=== PATIENT | female | born 1960 | race Two or more races ===

== ENCOUNTER 2017-01-19 04:01 | Emergency (ER) | payer OTHER, MEDICAID ==
[~2017-01-19] VITALS: Ht 177.8 cm; Wt 108.9 kg
[~2017-01-19 04:01] MED LIST: FOLI200T; HYDR-1421
[2017-01-19 05:05] LABS: Basophils # (auto) 0.1 uL; Basophils % (auto) 0.8 % (0.0-2.0); CONDITION Y; Eosinophils # (auto) 0.3 uL; Eosinophils % (auto) 3.5 % (0.0-7.0); Hematocrit 39.5 % (36.0-46.0); Hemoglobin 13.4 g/dL (12.2-16.2); Lymphocytes # (auto) 2.8 uL; Mean Corpuscular Hemoglobin 29.7 pg (28.0-32.0); Mean Corpuscular Volume 87.3 fL (80.0-100.0); Mean Platelet Volume 9.2 fL (7.4-10.4); Monocytes # (auto) 0.5 uL; Monocytes % (auto) 6.4 % (0.0-12.0); Neutrophils # (auto) 4.7 uL; Neutrophils % (auto) 56.3 % (37.0-80.0); Platelet Count (auto) 308 10^3/uL (140-450); Red Cell Distribution Width 13.9 % (11.6-16.0); White Blood Cell 8.4 10^3/uL (4.4-10.8)
[2017-01-19 05:17] LABS: INR 0.95 (0.9-1.15); Partial Thromboplastin Time 25.9 sec (22.64-33.71); Prothrombin Time 10.3 sec (9.37-12.3)
[2017-01-19 05:28] LABS: Albumin 3.5 g/dL (3.4-5.0); Alkaline Phosphatase 113 U/L (45-117); Anion Gap 6 (5-15); Aspartate Aminotransferase 15 U/L (15-37); BUN/Creatinine Ratio 28.6; Bilirubin, Total 0.7 mg/dL (0.2-1.0); Blood Urea Nitrogen 24 mg/dL (7-18); Calcium 9.5 mg/dL (8.5-10.1); Carbon Dioxide 25 mmol/L (21-32); Chloride 107 mmol/L (98-107); GFR African American 91 mL/min; GFR Non-African American 75 mL/min; Glucose 108 mg/dL (74-106); Magnesium 2.1 mg/dL (1.6-2.6); Potassium 3.8 mmol/L (3.5-5.1); Sodium 138 mmol/L (136-145); Total Protein 7.6 g/dL (6.4-8.2)
[2017-01-19 06:28] LABS: B-Type Natriuretic Peptide < 5.0 pg/mL (0-100); Temperature: 22.4 C (20.0-25.0)
[2017-01-19 06:31] VITALS: BP 133/74
== END 2017-01-19 07:40 | disposition left against medical advice (07) ==
LOC: ER 04:01 → EDBD 04:01 → ER 07:37
DX: R07.89 Other chest pain (principal); K21.9 Gastro-esophageal reflux disease without esophagitis; Z90.710 Acquired absence of both cervix and uterus
CPT/HCPCS: 36415; 71010; 80053; 83735; 83880; 84484; 85025; 85379; 85610; 85730; 93005

== ENCOUNTER → 2017-03-25 | Outpatient (CLI) | payer OTHER, MEDICAID ==
[~2017-03-25] VITALS: Ht 175.3 cm; Wt 136.1 kg
[~2017-03-25] MED LIST changes: +ADENOSINE 114 MG in GIVE UN-DILUTED 0 ML IV ONE; +ADENOSINE 90 MG/30 ML INJ IV ONE
== END | disposition home or self-care (01) ==
LOC: Rad HDHVI 10:32
PROVIDERS: ATTEND Internal Medicine Cardiovascular Disease
DX: Z01.810 Encounter for preprocedural cardiovascular examination (principal); I10 Essential (primary) hypertension; R94.31 Abnormal electrocardiogram [ECG] [EKG]; N31.9 Neuromuscular dysfunction of bladder, unspecified; R63.8 Other symptoms and signs concerning food and fluid intake; Z87.442 Personal history of urinary calculi
CPT/HCPCS: 78452; 93005; 96374; 96375; A9500; J0153

== ENCOUNTER → 2017-03-26 | Outpatient (CLI) | payer OTHER, MEDICAID ==
[~2017-03-26] MED LIST changes: -ADENOSINE 114 MG in GIVE UN-DILUTED 0 ML IV ONE; -ADENOSINE 90 MG/30 ML INJ IV ONE
== END | disposition home or self-care (01) ==
LOC: Rad HDHVI 15:17
PROVIDERS: ATTEND Internal Medicine Cardiovascular Disease
DX: Z01.810 Encounter for preprocedural cardiovascular examination (principal); R06.02 Shortness of breath
CPT/HCPCS: 93306

== ENCOUNTER 2024-05-09 08:18 | Day surgery (SDC) | payer OTHER ==
[~2024-05-09] VITALS: Ht 175.3 cm; Wt 137.9 kg
[~2024-05-09 08:18] MED LIST changes: +DOCU-94 PO; +FURO40TA4 PO; +GABA-1308 PO; -HYDR-1421; +LISI10TA34 PO; +MAGN400T40 OR; +METH-1181 PO; +METO25TA93 PO; +OMEP20TA PO; +POTA-36 PO; +SOLI10TA39 PO
[2024-05-09] MEDS ORDERED: fentaNYL CITRATE 100 MCG/2 ML VL IV ONE (08:19)
[2024-05-09] MEDS ORDERED: EPINEPHrine HCL 1 MG/1 ML AMP ONE ×4 (08:30→10:10)
[2024-05-09] MEDS ORDERED: fentaNYL CITRATE 100 MCG/2 ML VL ONE (08:40)
[2024-05-09] MEDS ORDERED: MIDAZOLAM HCL 2MG/2ML 2ml VIAL (1mg/ml) ONE (08:40)
[2024-05-09] MEDS ORDERED: ROPIVACAINE 0.5% (5MG/ML) 20ML AMPULE IJ ONE (08:59)
[2024-05-09] MEDS ORDERED: CEFEPIME 1GM/ 50ML 0 ML IV ONE (09:09)
[2024-05-09] MEDS: ceFAZolin 2 GM/D5W100ml 100 ML IV ONE (09:15)
[2024-05-09] MEDS ORDERED: LIDOCAINE 2% (LOCAL ANESTH.) PF 5ml SDV ONE (10:18)
[2024-05-09] MEDS ORDERED: ONDANSETRON HCL 4 MG/2 ML VIAL ONE (10:18)
[2024-05-09] MEDS ORDERED: PROPOFOL 10 MG/ML 20 ML IV ONE (10:18)
[2024-05-09] MEDS ORDERED: ONDANSETRON HCL 4 MG/2 ML VIAL IV ONE (10:30)
[2024-05-09] MEDS ORDERED: HYDROmorphone HCL 2 MG/ML VL/or syr IV PRN (10:30)
[2024-05-09 10:48] VITALS: TEMP 97.2; O2SAT 99
--- NOTE | 2024-05-09 11:08 | DVHOP2 ---
Operative Report - 2 Report Details Date: 05/09/24 Preop Diagnosis: Right shoulder impingement, partial rotator cuff tear, biceps tendinitis Postop Diagnosis: Right shoulder impingement, partial rotator cuff tear, partial biceps tear, labral tear Surgeon: Rolan Mcgill MD Parking Lot Chauffeur: Ophelia TORRES the Anesthesiologist: Brinda Anesthesia: General Implant: none Consent: The patient was informed of the risks and benefits of the procedure. These include but are not limited to complications of anesthesia, postoperative infection, incomplete relief of symptoms, recurrence of symptoms, damage to blood vessels, nerves and tendons, deep venous thrombosis, pulmonary embolism and possible need for repeat surgery in the future. Complications: None Estimated Blood Loss: Less than 5 cc Fluids: See anesthesia record Findings: Normal passive range of motion without instability. Cartilaginous surfaces intact. Very minimal articular fraying of the supraspinatus. Partial biceps tear with hyperemia. Synovitis in the rotator interval. Superior labral fraying. Subacromial bursitis. Narrow outlet. Indications for Surgery: Right shoulder impingement with MRI confirmed partial rotator cuff tear and failed nonoperative management with continued pain and functional impairment Name of Procedure Performed Right shoulder arthroscopy, extensive debridement including biceps tenotomy, subacromial decompression Procedure Details Procedure Details: Patient was brought to the operating room and placed on the table in supine position. Preop patient received IV Ancef. Patient was given general anesthetic. Brief examination anesthesia performed right upper extremity. Patient transferred to the lateral decubitus position with the right shoulder up. Stabilized with a jimenes bag and lower extremities well padded. Axillary roll applied. The right shoulder and upper extremity were prepped and draped in sterile fashion. Patient was placed in 15 lb traction with abduction flexion. Surgical time-out was performed verifying patient, laterality, and procedure. I inserted spinal needle via posterior approach and injected normal saline intra-articularly. I then made my posterior portal and entered the joint with blunt cannula and trocar. I began my inspection noting labral fraying superiorly and perhaps some slight loosening of the anchor with noted biceps hyperemia and partial tear as well as synovitis in the rotator interval and superior joint. There was some minimal fraying of the supraspinatus articular side. I made an anterior portal utilizing spinal needle for guidance. I inserted switching stick and then inserted with the obturator the purple cannula. I then used a shaver to perform synovectomy superior labral debridement. I used scissors to perform tenotomy and then debrided the stump. I then used the shaver to debride the articular rotator tissue. I suctioned the space as dry as possible redirected my posterior cannula into the subacromial space and began my inspection of the subacromial space. There was marked bursitis. I made a portal utilizing spinal needle for guidance laterally. I then performed bursectomy with shaver. Are thoroughly inspected and probed the rotator cuff and was not able to identify any significant tears. I used the radiofrequency device to remove periosteum from the undersurface of the acromion as well as releasing the CA ligament. I then did a smoothing acromioplasty with lior. The space was suctioned as dry as possible portal sites closed with nylon wounds dressed sterilely and shoulder immobilizer applied. Patient tolerated the procedure well was brought to recovery room in stable condition. Condition Stable Disposition Still a Patient ROLAN MCGILL MD May 09, 2024 11:08
[2024-05-09] MEDS ORDERED: ACETAMINOPHEN IV 100 ML IV ONE (11:14)
[2024-05-09] MEDS ORDERED: ACETAMINOPHEN IV 1000 MG/100ML (10MG/ML) IV ONE (11:15)
[2024-05-09] MEDS: HYDROmorphone HCL 2 MG/ML VL/or syr IV PRN (11:22)
[2024-05-09 11:48] VITALS: BP 108/66; PULSE 64; RESP 16; O2SAT 96
== END 2024-05-09 12:05 | disposition home or self-care (01) ==
LOC: SUR 08:18
PROVIDERS: ATTEND Orthopaedic Surgery
DX: M25.811 Other specified joint disorders, right shoulder (principal); M75.111 Incomplete rotator cuff tear or rupture of right shoulder, not specified as traumatic; S43.401A Unspecified sprain of right shoulder joint, initial encounter; M75.51 Bursitis of right shoulder; M65.811 Other synovitis and tenosynovitis, right shoulder; M75.21 Bicipital tendinitis, right shoulder; K21.9 Gastro-esophageal reflux disease without esophagitis; J44.9 Chronic obstructive pulmonary disease, unspecified; G47.30 Sleep apnea, unspecified; E66.01 Morbid (severe) obesity due to excess calories; I10 Essential (primary) hypertension; G47.33 Obstructive sleep apnea (adult) (pediatric); Z90.710 Acquired absence of both cervix and uterus; Z98.890 Other specified postprocedural states; Z79.899 Other long term (current) drug therapy; Z68.42 Body mass index [BMI] 45.0-49.9, adult; X58.XXXA Exposure to other specified factors, initial encounter; Y93.89 Activity, other specified; Y92.89 Other specified places as the place of occurrence of the external cause; Y99.8 Other external cause status
CPT/HCPCS: 29823; 29826; J0171; J1171; J2003; J2250; J2405; J2704; J2795; J3010; A4565; J0131

== ENCOUNTER 2024-07-18 18:31 | Inpatient (IN) | payer OTHER ==
[~2024-07-18] VITALS: Ht 175.3 cm; Wt 136.7 kg
--- NOTE | 2024-07-18 19:10 | ED.PDOC ---
HPI Comments BALJIT: HPI: Poor Historian. 64-year-old female presents to emergency department for evaluation of three day history of tachycardia palpitations that is intermittent in nature. Patient is started developing some chest pain today that is nonradiating midsternal. Patient has some associated mild shortness of breath. Patient found out that her heart rate was in the 180s through her smart watch. Patient has some shortness of breath and use her inhaler prior to arrival today. She took all her morning dose of medications. Patient had one episode of nausea and vomiting today nonbilious nonbloody. Denies any abdominal pain. Past Medcial History: Pulmonary hypertension, COPD, sleep apnea, Past Surgical History: Open heart surgery, right shoulder surgery, left shoulder surgery, left knee surgery, right hip mesh placement. Patient is on Lopressor, magnesium, aspirin, Lasix, potassium, lisinopril, methocarbamol, collagen REVIEW OF SYSTEMS: CONSTITUTIONAL: Denies acute: fever, diaphoresis, chills, HEAD: Denies acute: headache, photophobia Eyes: Denies acute: Double vision, vision loss, eye pain, eye discharge. EARS: Denies acute: tinnitus, hearing loss, ear discharge, ear pain, THROAT: Denies acute: sore throat, swelling, difficulty swallowing , pain with swallowing, change in voice. NECK: Denies acute: neck pain, neck swelling, stiff neck. HEART: Denies acute : LUNGS: Denies acute: , wheezing, cough, hemoptysis ABDOMEN: Denies acute: abdominal pain, Nausea, Vomiting, diarrhea, melena , hematemesis, hematochezia SKIN: Denies acute: rash, redness, lesions, itchiness. EXTREMITIES: Denies acute: calf pain, numbness, tingling, weakness, denies pain in extremity. Denies acute: Low back pain. Neuro: Denies acute: focal neurological deficit, motor or sensory focal neurological deficit, tremors, seizure like activity, confusion, dizziness, change in mental status, loss of bowel or bladder function, cauda equina like symptoms. : Denies acute: dysuria, hematuria, flank pain, increase in urinary frequency. PSYCH: Denies acute: hallucination, suicidal ideation, homicidal ideation. FEMALE: Denies acute: abnormal vaginal bleeding, foul odor, unusual discharge. PHYSICAL EXAM: General: Moderate acute distress, awake and alert. Head: normocephalic, atraumatic. Neck: supple, trachea is midline, no swelling. Throat: Normal phonation. Eyes:, no erythema, no purulent discharge, no proptosis, no icterus. Heart: regular tachycardic, no significant murmur appreciated. Lungs: no apparent respiratory distress, Able to speak in full sentences. No wheezing, no rhonchi, no crackles. No stridors Clear to auscultation bilaterally. Abdomen: non tender to palpation, non distended, soft, no guarding, no rebound, + bowel sounds. Obese Neuro: Awake, Alert, oriented to name, self, situation, follows commands GCS=15. Speech is normal. Skin: no petechia, no purpura, no cyanosis, non-pale, not jaundice. Lower extremities: --trace bilateral- Pitting edema no deformity, no focal swelling, no calf TTP. Makes eye contact. moves all four extremities. Face: no apparent facial droop. Ambulating in the ED independently. Chief Complaint: Palpitations Time Seen by MD: 18:37 Primary Care Provider: unknown Reviewed Notes: Nurses Notes, Medications, Allergies Allergies: Coded Allergies: NO KNOWN ALLERGIES (Unverified , 05/05/24) Home Meds Reported Medications Gabapentin (Gabapentin) 100 Mg Cap, 100 MG PO BID for 30 Days, MG 05/05/24 Omeprazole (Gnp Omeprazole) 20 Mg Tab, 40 MG PO, TAB 05/05/24 Solifenacin Succinate (Solifenacin Succinate) 10 Mg Tab, 10 MG PO, TAB 05/05/24 Magnesium Oxide (MAGNESIUM OXIDE) 400 Mg Tab, 500 MG OR, TAB 05/05/24 Furosemide (Furosemide) 40 Mg Tab, 40 MG PO BIDD for 30 Days, MG 05/05/24 Potassium Chloride (POTASSIUM CHLORIDE CR) 10 Meq Tb, 20 MEQ PO, TAB 05/05/24 Docusate Sodium (Colace) 100 Mg Cap, 1 CAP PO BID, #30 CAP 05/05/24 Methocarbamol (Methocarbamol) 500 Mg Tab, 500 MG PO for 30 Days, MG 05/05/24 Lisinopril (Lisinopril) 10 Mg Tab, 10 MG PO DAILY for 30 Days, MG 05/05/24 Metoprolol Succinate (Metoprolol Succinate Er) 25 Mg Tab, 25 MG PO DAILY for 30 Days, MG 05/05/24 Folic Acid (Folic Acid) 200 Mcg Tab 08/17/10 Information Source: Patient Mode of Arrival: Ambulatory Past Medical History PAST MEDICAL HISTORY: GERD Surgical History: Hysterectomy 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 REAL 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 ATTORNEY History: No Pertinent COMMERCIAL REAL ESTATE ATTORNEY History Family History Family History: Unobtainable Social History Smoker: Non-Smoker Alcohol: Denies ETOH Use Drugs: Denies Drug Use Lives In: Home X-Ray, Labs, Meds, VS Vital Signs Date Time Temp Pulse Resp B/P (MAP) Pulse Ox O2 Delivery O2 Flow Rate FiO2 07/18/24 18:46 98.0 96 17 128/89 (102) 97 07/18/24 18:36 145 Lab Test 07/18/24 20:21 07/18/24 18:40 Range/Units Urine Color Colorless Yellow Urine Clarity Clear Clear Urine pH 6.0 5.0-9.0 Urine Specific [place] 1.005 1.001-1.035 Urine Protein Negative Negative Urine Ketones Negative Negative Urine Blood Negative Negative /uL Urine Nitrite Negative Negative Urine Bilirubin Negative Negative Urine Urobilinogen Normal Negative mg/dL Urine Leukocyte Esterase Negative Negative /uL Urine RBC <1 0 - 4 /hpf Urine Microscopic WBC < 1 0-5 /HPF Urine Squamous Epithelial Cells Few <5 /hpf Urine Bacteria None seen None Seen /hpf Urine Glucose Normal Normal mg/dL White Blood Count 7.0 4.4-10.8 10^3/uL Red Blood Count 4.84 4.0-5.20 10^6/uL Hemoglobin 13.0 12.2-16.2 g/dL Hematocrit 39.7 36.0-46.0 % Mean Corpuscular Volume 82.0 80.0-100.0 fL Mean Corpuscular Hemoglobin 26.9 L 28.0-32.0 pg Mean Corpuscular Hemoglobin Concent 32.8 32.0-36.0 g/dL Red Cell Distribution Width 17.9 H 11.8-14.3 % Platelet Count 265 140-450 10^3/uL Mean Platelet Volume 8.8 6.9-10.8 fL Neutrophils (%) (Auto) 62.8 37.0-80.0 % Lymphocytes (%) (Auto) 27.4 10.0-50.0 % Monocytes (%) (Auto) 6.9 0.0-12.0 % Eosinophils (%) (Auto) 2.4 0.0-7.0 % Basophils (%) (Auto) 0.5 0.0-2.0 % Neutrophils # (Auto) 4.4 1.6-8.6 10 ^3/uL Lymphocytes # (Auto) 1.9 0.4-5.4 10 ^3/uL Monocytes # (Auto) 0.5 0-1.3 10 ^3/uL Eosinophils # (Auto) 0.2 0-0.8 10 ^3/uL Basophils # (Auto) 0 0-0.2 10 ^3/uL Nucleated Red Blood Cells 0.1 % D-Dimer, Quantitative 0.46 0.0-0.49 mg/L FEU Sodium Level 136 136-145 mmol/L Potassium Level 4.6 3.5-5.1 mmol/L Chloride Level 103 98-107 mmol/L Carbon Dioxide Level 25 20-31 mmol/L Anion Gap 8 5-15 Blood Urea Nitrogen 23 9-23 mg/dL Creatinine 1.05 H 0.550-1.02 mg/dL Glomerular Filtration Rate Calc 60 >90 mL/min BUN/Creatinine Ratio 21.9 H 10.0-20.0 Serum Glucose 146 H 74-106 mg/dL Lactic Acid Level 2.3 *H 0.4-2.0 mmol/L Calcium Level 10.9 H 8.7-10.4 mg/dL Magnesium Level 1.8 1.6-2.6 mg/dL Total Bilirubin 1.3 H 0.2-1.0 mg/dL Aspartate Amino Transferase (AST) 23 13-40 U/L Alanine Aminotransferase (ALT) 29 7-40 U/L Alkaline Phosphatase 142 H 46-116 U/L Troponin I High Sensitivity 7 </=34 ng/L B-Type Natriuretic Peptide 87.36 0-100 pg/mL Total Protein 7.3 5.7-8.2 g/dL Albumin 4.6 3.2-4.8 g/dL Current Medications Medications (Trade) Dose Ordered Sig/Anil Route Start Time Stop Time Status Last Admin Ondansetron HCl (Zofran) 8 mg ONCE ONCE IV 07/18/24 19:15 07/18/24 19:18 DC 07/18/24 20:[address] [address] Ph: [phone] DIAGNOSTIC IMAGING Diagnostic Imaging Report : [id number] Signed PATIENT: TONYA SMILEY ACCT: [id number] UNIT: [id number] : 1960 LOC: ER ROOM / BED: / AGE / SEX: 64 / F ADM STATUS: REG ER SERVICE 38 ORDERING PHYSICIAN: ORA CORTES DO PROCEDURE(s): CXRP - CHEST PORTABLE REASON: CP, PALPITATIONS, SOB ORDER NUMBER(s): [id number], ACCESSION NUMBER(s): [id number] CHEST RADIOGRAPH Indication: CP, PALPITATIONS, SOB Technique: Single frontal view of the chest was obtained Comparison: XY CHEST PORTABLE on DOS: 01/19/23 FINDINGS: Lines and Tubes: None Lungs: No focal consolidation. Pleura: No effusion. No pneumothorax. Cardiomediastinal contours: Unremarkable. Midline sternotomy wires are noted. Bones: No acute osseous abnormality. IMPRESSION: No acute cardiopulmonary disease. ATED BY: STELLA LAUREN DO DICTATED DATE/TIME: 07/18/241940 SIGNED BY: STELLA LAUREN DO SIGNED DATE/TIME: 07/18/241940 CC: Time of 1ST Reevaluation: 20:42 (The case was discussed with the admitting team (HPI, physical exam, labs and diagnostic tests that were available at the time of disposition, ED course, treatment plan) on the phone. They agreed to admit the patient to their service and assume care of this patient from this point forward. MITCH Norris. ) Patient Education/Counseling: Diagnosis, Treatment Family Education/Counseling: No Family Present Comments Patient presented with the above HPI. Palpitations workup was initiated. patient was found with the above mentioned diagnosis. the following medications were ordered: metoprolol, Zofran, NTG the following tests were ordered: troponin, EKG, CXR, CMP, CBC, BNP, D-dimer, LA, magnesium, UA Patient ED course and VS have been stabilized. Patient has been reassessed in the ED and remained in a stable condition. Pertinent incidental findings were discussed with the patient and/or family. Patient/family voices understanding and is agreeable with plan. Patient has been observed in the ED adequate length of time to insure improvement/stability. Escalation of care considered: Consideration of escalation to observation or admission Patient was ADMITTED to the medicine team for further evaluation and treatment of their presentation. Patient was DISCHARGED home in a stable condition. All the reports of any imaging studies that were ordered by myself were reviewed by myself. Departure 1 Departure Time of Disposition: 19:10 Impression: Primary Impression: Chest pain Additional Impression: Palpitations Disposition: ADMITTED INPATIENT Admit to: Tele Condition: Guarded I personally scribed for ORA CORTES DO ([email or web address]) on 07/19/24 at 00:22. Electronically submitted by Misha Dow ([email or web address]). ORA CORETS DO Jul 18, 2024 19:10
[2024-07-18 19:19] LABS: Basophils # (auto) 0 10 ^3/uL (0-0.2); Basophils % (auto) 0.5 % (0.0-2.0); Eosinophils # (auto) 0.2 10 ^3/uL (0-0.8); Eosinophils % (auto) 2.4 % (0.0-7.0); Hematocrit 39.7 % (36.0-46.0); Lymphocytes # (auto) 1.9 10 ^3/uL (0.4-5.4); Lymphocytes % (auto) 27.4 % (10.0-50.0); Mean Corpuscular Hemoglobin 26.9 pg (28.0-32.0); Mean Corpuscular Hgb Conc. 32.8 g/dL (32.0-36.0); Monocytes # (auto) 0.5 10 ^3/uL (0-1.3); Monocytes % (auto) 6.9 % (0.0-12.0); Neutrophils # (auto) 4.4 10 ^3/uL (1.6-8.6); Neutrophils % (auto) 62.8 % (37.0-80.0); Nucleated Red Blood Cells % 0.1 %; Platelet Count (auto) 265 10^3/uL (140-450); Red Blood Cells 4.84 10^6/uL (4.0-5.20); Red Cell Distribution Width 17.9 % (11.8-14.3)
[2024-07-18 19:31] LABS: Alanine Aminotransferase 29 U/L (7-40); Albumin 4.6 g/dL (3.2-4.8); Anion Gap 8 (5-15); Aspartate Aminotransferase 23 U/L (13-40); Carbon Dioxide 25 mmol/L (20-31); Chloride 103 mmol/L (98-107); Magnesium 1.8 mg/dL (1.6-2.6); Potassium 4.6 mmol/L (3.5-5.1)
[2024-07-18 19:32] LABS: Total Protein 7.3 g/dL (5.7-8.2)
[2024-07-18 19:42] LABS: Lactic Acid w/Reflex 2.3 mmol/L (0.4-2.0)
--- NOTE | 2024-07-18 19:43 | DVH ---
CHEST RADIOGRAPH Indication: CP, PALPITATIONS, SOB Technique: Single frontal view of the chest was obtained Comparison: XY CHEST PORTABLE on DOS: 01/19/23 FINDINGS: Lines and Tubes: None Lungs: No focal consolidation. Pleura: No effusion. No pneumothorax. Cardiomediastinal contours: Unremarkable. Midline sternotomy wires are noted. Bones: No acute osseous abnormality. IMPRESSION: No acute cardiopulmonary disease.
[2024-07-18 19:45] LABS: Alkaline Phosphatase 142 U/L (46-116); Bilirubin, Total 1.3 mg/dL (0.2-1.0); Calcium 10.9 mg/dL (8.7-10.4); Glucose 146 mg/dL (74-106); Sodium 136 mmol/L (136-145)
[2024-07-18 19:49] LABS: BUN/Creatinine Ratio 21.9 (10.0-20.0); Blood Urea Nitrogen 23 mg/dL (9-23)
--- NOTE | 2024-07-18 20:45 | ECG ---
[facility] Test Date: 2024-07-18 Test Time: 18:36:44 Pat Name: TONYA SMILEY Department: ER Room: 0217T Gender: F Commodity Analyst: BOLA : 1960 Requested By: ORA CORTES Order Number: [id number] Reading MD: Dylan Price Measurements Intervals [place] Rate: 145 P: 249 MD: 119 QRS: 79 QRSD: 100 T: 31 QT: 287 QTc: 446 Interpretive Statements Sinus or ectopic atrial tachycardia Low voltage, precordial leads Minimal ST depression, anterior leads Baseline wander in lead(s) V3 Electronically Signed On 07-20-2024 16:40:55 PST by Dylan Price Please click the below link to view image of tracing.
[2024-07-18] MEDS: NITROGLYCERIN 0.4 MG SL TAB SL ONE (20:52)
[2024-07-18] MEDS: ONDANSETRON HCL 4 MG/2 ML VIAL IV ONE (20:58)
[2024-07-18 20:59] LABS: Urine Bacteria None Seen /hpf (None Seen)
[2024-07-18] MEDS ORDERED: NITROGLYCERIN 0.4 MG SL TAB SL PRN (21:00)
[2024-07-18] MEDS ORDERED: ONDANSETRON HCL 4 MG/2 ML VIAL IV PRN (21:00)
[2024-07-18] MEDS ORDERED: MORPHINE SULFATE INJ 2 MG/ml SYRG IV PRN (21:00)
[2024-07-18] MEDS ORDERED: HYDROcodone-ACET 5/325MG TAB PO PRN (21:00)
[2024-07-18 21:06] LABS: Urine Blood Negative /uL (Negative); Urine Clarity Clear (Clear); Urine Color Colorless (Yellow); Urine Protein, UAD Negative (Negative); Urine Specific Gravity 1.005 (1.001-1.035); Urine Squamous Epithelial Cell FEW /hpf (<5); Urine Urobilinogen Normal (Negative); Urine WBC < 1 /HPF (0-5)
[2024-07-18] MEDS: METOPROLOL TARTRATE 1MG/1ML-5ML VIAL IV ONE (21:25)
[2024-07-18] MEDS: FAMOTIDINE 20 MG TAB PO SCH (21:58)
[2024-07-18] MEDS: DOCUSATE SOD 100 MG CAP PO SCH (21:58)
[2024-07-18] MEDS: GABAPENTIN 100 MG CAP PO SCH (21:58)
[2024-07-18] MEDS: ATORVASTATIN 20 MG TAB PO SCH (21:59)
[2024-07-19] VITALS (9 sets, daily range): BP systolic 105–127; BP diastolic 54–84; PULSE 69–92; RESP 18–20; TEMP 97.4–98; O2SAT 95–97
--- NOTE | 2024-07-19 00:55 | DVHHP2 ---
Admitting Diagnosis: Chest pain rule out ACS, Palpitations History of Present Illness History Source: Patient Exam Limitations: No limitations HPI Mrs. Daniel Fagan is a 64-year-old female with a history of pulmonary hypertension, COPD, sleep apnea, CABG who presents with a chief complaint of palpitations that is intermittent in nature. Patient reports she started developing midsternal chest pain radiating to her neck with associated headaches, dizziness. Patient has some mild shortness of breath. Patient found out that her heart rate was in the 180s through her smart watch for the past 3 days. Patient reports she associates her headache and neck pain followed by her palpitations and chest pain. Patient admitted for further evaluation. Home Meds Reported Medications Gabapentin (Gabapentin) 100 Mg Cap, 100 MG PO BID for 30 Days, MG 05/05/24 Omeprazole (Gnp Omeprazole) 20 Mg Tab, 40 MG PO, TAB 05/05/24 Solifenacin Succinate (Solifenacin Succinate) 10 Mg Tab, 10 MG PO, TAB 05/05/24 Magnesium Oxide (MAGNESIUM OXIDE) 400 Mg Tab, 500 MG OR, TAB 05/05/24 Furosemide (Furosemide) 40 Mg Tab, 40 MG PO BIDD for 30 Days, MG 05/05/24 Potassium Chloride (POTASSIUM CHLORIDE CR) 10 Meq Tb, 20 MEQ PO, TAB 05/05/24 Docusate Sodium (Colace) 100 Mg Cap, 1 CAP PO BID, #30 CAP 05/05/24 Methocarbamol (Methocarbamol) 500 Mg Tab, 500 MG PO for 30 Days, MG 05/05/24 Lisinopril (Lisinopril) 10 Mg Tab, 10 MG PO DAILY for 30 Days, MG 05/05/24 Metoprolol Succinate (Metoprolol Succinate Er) 25 Mg Tab, 25 MG PO DAILY for 30 Days, MG 05/05/24 Folic Acid (Folic Acid) 200 Mcg Tab 08/17/10 Past Medical History Cardiac: Pulmonary hypertension Pulmonary: COPD Central Nervous System: No pertinent Hx GI: No pertinent Hx Hemotology/Oncology: No pertinent Hx Hepatobiliary: No pertinent Hx Psychiatric: No pertinent Hx Musculoskeletal: No pertinent Hx Rheumotologic: No pertinent Hx Infectious Disease: No peritnent Hx ENT: No pertinent Hx Renal/: No pertinent Hx Endocrine: No pertinent Hx Dermatology: No pertinent Hx Past Surgical History: CABG Smoker: No Hx (Negative) Alocohol: None Drugs: None Lives with: With family Domestic Violence: Neg Review of Systems Comments headaches Constitutional: No symptom reported Ears, Nose, & Throat: No symptom reported Eyes: No symptom reported Pulmonary/Respiratory: No symptom reported Cardiovascular: Chest Pain, Palpitations Gastrointestinal: No symptom reported Genitourinary: No symptom reported Musculoskeletal: Neck pain Skin: No symptom reported Psychiatric: No symptom reported Endocrine: No symptom reported Hemotologic/Lymphatic: No symptom reported H&P Exam Vital Signs Vital Signs Date Time Temp Pulse Resp B/P (MAP) Pulse Ox O2 Delivery O2 Flow Rate FiO2 07/19/24 00:00 83 17 122/68 (86) 97 07/18/24 21:22 Room Air* 0 21 07/18/24 21:18 97.9 97.9 General Appeara: Well developed, Well nourished, Normal Appearance Head Exam: Normal inspection Neck Exam: Normal inspection, Non-tender, Normal alignment Eye Exam: bilateral eye Normal inspection, bilateral eye PERRL, bilateral eye EOMI Ear Exam: bilateral ear Auricle normal Nasal Exam: Normal inspection Mouth: Normal Inspection Pulmonary/Respiratory: Normal inspection, Normal breath sounds, Chest non- tender, Lungs clear Cardiovascular/Chest: Normal inspection, Regular rate, Normal Rhythm Peripheral Pulses: 2+ dorsalis pedis (R), 2+ dorsalis pedis (L), 2+ Radial (R), 2+ Radial (L) Abdominal Exam: Normal bowel sounds, Soft, No tenderness Rectal Exam: Deferred Back Exam: Normal inspection Pelvic Exam: Not done SENIOR MANAGER Exam: Normal hearing, Normal speech, PERRL Motor/Sensory: Normal sensory function, Normal motor function Neuro/Mental St: Alert, Oriented Appearance: Appropriate appearance, Appropriate insight Eye contact/ Speech: Cooperative, Good eye contact, Normal speech Thoughts/Psych: Normal thought pattern Skin Exam: Normal inspection, Normal color, Warm/dry Labs/Xrays Labs Test 07/19/24 00:15 07/18/24 21:17 07/18/24 20:21 07/18/24 18:40 Range/Units Lactic Acid Level 1.2 0.4-2.0 mmol/L Urine Color Colorless Yellow Urine Clarity Clear Clear Urine pH 6.0 5.0-9.0 Urine Specific [place] 1.005 1.001-1.035 Urine Protein Negative Negative Urine Ketones Negative Negative Urine Blood Negative Negative /uL Urine Nitrite Negative Negative Urine Bilirubin Negative Negative Urine Urobilinogen Normal Negative mg/dL Urine Leukocyte Esterase Negative Negative /uL Urine RBC <1 0 - 4 /hpf Urine Microscopic WBC < 1 0-5 /HPF Urine Squamous Epithelial Cells Few <5 /hpf Urine Bacteria None seen None Seen /hpf Urine Glucose Normal Normal mg/dL White Blood Count 7.0 4.4-10.8 10^3/uL Red Blood Count 4.84 4.0-5.20 10^6/uL Hemoglobin 13.0 12.2-16.2 g/dL Hematocrit 39.7 36.0-46.0 % Mean Corpuscular Volume 82.0 80.0-100.0 fL Mean Corpuscular Hemoglobin 26.9 L 28.0-32.0 pg Mean Corpuscular Hemoglobin Concent 32.8 32.0-36.0 g/dL Red Cell Distribution Width 17.9 H 11.8-14.3 % Platelet Count 265 140-450 10^3/uL Mean Platelet Volume 8.8 6.9-10.8 fL Neutrophils (%) (Auto) 62.8 37.0-80.0 % Lymphocytes (%) (Auto) 27.4 10.0-50.0 % Monocytes (%) (Auto) 6.9 0.0-12.0 % Eosinophils (%) (Auto) 2.4 0.0-7.0 % Basophils (%) (Auto) 0.5 0.0-2.0 % Neutrophils # (Auto) 4.4 1.6-8.6 10 ^3/uL Lymphocytes # (Auto) 1.9 0.4-5.4 10 ^3/uL Monocytes # (Auto) 0.5 0-1.3 10 ^3/uL Eosinophils # (Auto) 0.2 0-0.8 10 ^3/uL Basophils # (Auto) 0 0-0.2 10 ^3/uL Nucleated Red Blood Cells 0.1 % D-Dimer, Quantitative 0.46 0.0-0.49 mg/L FEU Sodium Level 136 136-145 mmol/L Potassium Level 4.6 3.5-5.1 mmol/L Chloride Level 103 98-107 mmol/L Carbon Dioxide Level 25 20-31 mmol/L Anion Gap 8 5-15 Blood Urea Nitrogen 23 9-23 mg/dL Creatinine 1.05 H 0.550-1.02 mg/dL Glomerular Filtration Rate Calc 60 >90 mL/min BUN/Creatinine Ratio 21.9 H 10.0-20.0 Serum Glucose 146 H 74-106 mg/dL Calcium Level 10.9 H 8.7-10.4 mg/dL Magnesium Level 1.8 1.6-2.6 mg/dL Total Bilirubin 1.3 H 0.2-1.0 mg/dL Aspartate Amino Transferase (AST) 23 13-40 U/L Alanine Aminotransferase (ALT) 29 7-40 U/L Alkaline Phosphatase 142 H 46-116 U/L B-Type Natriuretic Peptide 87.36 0-100 pg/mL Total Protein 7.3 5.7-8.2 g/dL Albumin 4.6 3.2-4.8 g/dL Assessment/Plan Problem List: (1) Chest pain (2) Palpitations Plan This is a 64 yo female with known history of pulmonary hypertension, COPD, CABG, sleep apnea who presents with chest pain, and palpitations. Patient has a heart score of 5 last echocardiogram was about a year ago. 1. Chest pain rule out ACS 2. Palpitations 3. Dizziness PLAN Admit Telemetry unit Cardiology consultation, 2D echocardiogram, serial troponin levels, ASA, Statin Lipid panel, Reconcile home medications and continue as needed Discussed all above with patient who verbalizes agreement and understanding of care plan, all questions were answered. Discussed assessment and care plan with supervising MD. Plan discussed with: Patient, Other Code Visit Code Visit Total Time (mins): 45 Additional Comments Additional Comments Additional Comments Patient seen evaluated by nurse practitioner and admitted by PROCUREMENT ANALYST. Patient's chart is reviewed. I agree with nurse practitioner evaluation, documentation, assessment and care plan as outlined. ELISEO COOPER Jul 19, 2024 00:55 ETHAN PAREDES MD Jul 19, 2024 16:05
[2024-07-19] MEDS: ACETAMINOPHEN 325 MG TAB PO PRN (01:54)
--- NOTE | 2024-07-19 04:04 | ECG ---
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
[2024-07-19] MEDS: FUROSEMIDE 40 MG TAB PO SCH (05:24)
[2024-07-19 07:12] LABS: Triglycerides 118 mg/dL (< 150)
[2024-07-19 07:13] LABS: LDL Cholesterol 87 mg/dL (< 100)
[2024-07-19 07:14] LABS: Cholesterol 159 mg/dL (< 200); HDL Cholesterol 56 mg/dL (40-59)
--- NOTE | 2024-07-19 08:36 | DVH ---
CLINICAL INFORMATION: 64 years old, Female; headaches, dizziness. TECHNIQUE: Axial imaging was obtained through the brain without contrast. Coronal and sagittal refor matted images were obtained, reviewed, and stored. Images were reviewed in brain and bone windows. A ll CT scans at this medical facility are performed using dose modulation techniques as appropriate to a performed exam including the following: Automated exposure control was utilized; adjustment of the MA and/or KV according to patient size; and use of iterative reconstruction technique. CTDIvol = 53.77 mGy DLP = 971.29 mGy-cm COMPARISON: None FINDINGS: There is no acute intracranial hemorrhage or extraaxial fluid collection. No mass effect o r midline shift. Scattered areas of hypoattenuation are seen in the periventricular and subcortical w evelyne matter, which are nonspecific but most likely sequelae of small vessel ischemic disease. The franklin tricles and sulci are within normal limits in size for age. Basal cisterns are patent. The calvar ium is unremarkable. Small retention cyst versus polyp in the anterior aspect of the right maxillary sinus. Mastoid air cells are clear. IMPRESSION: No CT evidence of acute intracranial abnormality. Nonacute findings as described above.
--- NOTE | 2024-07-19 08:59 | ECG ---
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
[2024-07-19] MEDS: ASPirin-EC 81 mg tab PO SCH (10:36)
[2024-07-19] MEDS: LISINOPRIL 20 MG TAB PO SCH (10:41)
[2024-07-19] MEDS: METOPROLOL SUCCINATE XL 50 MG TAB PO SCH (10:42)
[2024-07-19] MEDS: oxyCODONE HCL 5MG TAB PO PRN (16:29)
[2024-07-20] VITALS (7 sets, daily range): BP systolic 100–132; BP diastolic 63–68; PULSE 77–96; RESP 16–20; TEMP 97.7–98.7; O2SAT 94–96
[2024-07-20] MEDS: POTASSIUM CHL 10 Meq TABLET PO SCH (11:13)
[2024-07-20] MEDS ORDERED: FURO40TA4 PO (14:24)
[2024-07-20] MEDS ORDERED: MECL12.586 PO (14:24)
[2024-07-20] MEDS ORDERED: SENN-58 PO (14:24)
[2024-07-20] MEDS ORDERED: POTA-36 PO (14:24)
--- NOTE | 2024-07-20 14:25 | DVHDS2 ---
Discharge Summary Date of Admission Jul 18, 2024 at 20:48 Date of Discharge: Jul 20, 2024 Labs/Diagnostic Data: Laboratory Results Test 07/19/24 12:00 07/19/24 05:38 07/18/24 21:17 07/18/24 20:21 Troponin I High Sensitivity 12 ng/L (</=34) Triglycerides Level 118 mg/dL (< 150) Cholesterol Level 159 mg/dL (< 200) LDL Cholesterol 87 mg/dL (< 100) HDL Cholesterol 56 mg/dL (40-59) Lactic Acid Level 1.2 mmol/L (0.4-2.0) Urine Color Colorless (Yellow) Urine Clarity Clear (Clear) Urine pH 6.0 (5.0-9.0) Urine Specific [place] 1.005 (1.001-1.035) Urine Protein Negative (Negative) Urine Ketones Negative (Negative) Urine Blood Negative /uL (Negative) Urine Nitrite Negative (Negative) Urine Bilirubin Negative (Negative) Urine Urobilinogen Normal mg/dL (Negative) Urine Leukocyte Esterase Negative /uL (Negative) Urine RBC <1 /hpf (0 - 4) Urine Microscopic WBC < 1 /HPF (0-5) Urine Squamous Epithelial Cells Few /hpf (<5) Urine Bacteria None seen /hpf (None Seen) Urine Glucose Normal mg/dL (Normal) Test 07/18/24 18:40 White Blood Count 7.0 10^3/uL (4.4-10.8) Red Blood Count 4.84 10^6/uL (4.0-5.20) Hemoglobin 13.0 g/dL (12.2-16.2) Hematocrit 39.7 % (36.0-46.0) Mean Corpuscular Volume 82.0 fL (80.0-100.0) Mean Corpuscular Hemoglobin 26.9 pg (28.0-32.0) Mean Corpuscular Hemoglobin Concent 32.8 g/dL (32.0-36.0) Red Cell Distribution Width 17.9 % (11.8-14.3) Platelet Count 265 10^3/uL (140-450) Mean Platelet Volume 8.8 fL (6.9-10.8) Neutrophils (%) (Auto) 62.8 % (37.0-80.0) Lymphocytes (%) (Auto) 27.4 % (10.0-50.0) Monocytes (%) (Auto) 6.9 % (0.0-12.0) Eosinophils (%) (Auto) 2.4 % (0.0-7.0) Basophils (%) (Auto) 0.5 % (0.0-2.0) Neutrophils # (Auto) 4.4 10 ^3/uL (1.6-8.6) Lymphocytes # (Auto) 1.9 10 ^3/uL (0.4-5.4) Monocytes # (Auto) 0.5 10 ^3/uL (0-1.3) Eosinophils # (Auto) 0.2 10 ^3/uL (0-0.8) Basophils # (Auto) 0 10 ^3/uL (0-0.2) Nucleated Red Blood Cells 0.1 % D-Dimer, Quantitative 0.46 mg/L FEU (0.0-0.49) Sodium Level 136 mmol/L (136-145) Potassium Level 4.6 mmol/L (3.5-5.1) Chloride Level 103 mmol/L (98-107) Carbon Dioxide Level 25 mmol/L (20-31) Anion Gap 8 (5-15) Blood Urea Nitrogen 23 mg/dL (9-23) Creatinine 1.05 mg/dL (0.550-1.02) Glomerular Filtration Rate Calc 60 mL/min (>90) BUN/Creatinine Ratio 21.9 (10.0-20.0) Serum Glucose 146 mg/dL (74-106) Calcium Level 10.9 mg/dL (8.7-10.4) Magnesium Level 1.8 mg/dL (1.6-2.6) Total Bilirubin 1.3 mg/dL (0.2-1.0) Aspartate Amino Transferase (AST) 23 U/L (13-40) Alanine Aminotransferase (ALT) 29 U/L (7-40) Alkaline Phosphatase 142 U/L (46-116) B-Type Natriuretic Peptide 87.36 pg/mL (0-100) Total Protein 7.3 g/dL (5.7-8.2) Albumin 4.6 g/dL (3.2-4.8) Other Laboratory Tests 07/18/24 18:40 Brief Hx & Hospital Course: Mrs. Daniel Fagan is a 64-year-old female with a history of pulmonary hypertension, COPD, sleep apnea, CABG who presents with a chief complaint of palpitations that is intermittent in nature. Patient reports she started developing midsternal chest pain radiating to her neck with associated headaches, dizziness. Patient has some mild shortness of breath. Patient found out that her heart rate was in the 180s through her smart watch for the past 3 days. Patient reports she associates her headache and neck pain followed by her palpitations and chest pain. Patient admitted for further evaluation. She was admitted and underwent evaluations. Her troponins have been normal. Head CT and chest x-ray did not show any acute pathology. Lactic acid is mildly elevated however normalized. Patient received supportive care and treatment. Her symptoms resolved. Therefore she has been discharged home in stable condition. Patient is advised to continue the medications per her discharge med reconciliation list/as she was taking at home and have a follow up with her primary care physician and referrals to consultants as deemed appropriate. Patient verbalized understanding over hospital diagnosis, treatment she received, discharge medications, discharge instructions and agree with follow-up plan of care. Condition at Discharge: Stable Final Diagnosis/Problems List Dizziness, hypertension, CHF, morbid obesity Discharge Disposition: Home Discharge Instruct/Medications Diet: Consistent carbohydrate, Cardiac 2g Na,low cholest Activity: No Restrictions, As Tolerated Follow Up/Referral: Primary care physician next week for further evaluation follow up of fever symptoms/complaints Medications: As prescribed and home medications New Medications: Meclizine Hcl (Meclizine Hcl) 12.5 Mg Tab 1 TAB PO BID, #14 TAB For dizziness/nausea Senna (Senokot) 8.6 Mg Tab 1 TAB PO BID, #40 TAB Changed Medications: Potassium Chloride (Potassium Chloride Cr) 10 Meq Tb 20 MEQ PO DAILY, #30 TAB (Medication details modified) Continued Medications: Docusate Sodium (Colace) 100 Mg Cap 1 CAP PO BID, #30 CAP Folic Acid (Folic Acid) 200 Mcg Tab Furosemide (Furosemide) 40 Mg Tab 40 MG PO BIDD, #90 MG (This prescription has been renewed) Gabapentin (Gabapentin) 100 Mg Cap 100 MG PO BID for 30 Days, MG Lisinopril (Lisinopril) 10 Mg Tab 10 MG PO DAILY for 30 Days, MG Magnesium Oxide (Magnesium Oxide) 400 Mg Tab 500 MG OR, TAB Methocarbamol (Methocarbamol) 500 Mg Tab 500 MG PO for 30 Days, MG Metoprolol Succinate (Metoprolol Succinate Er) 25 Mg Tab 25 MG PO DAILY for 30 Days, MG Omeprazole (Gnp Omeprazole) 20 Mg Tab 40 MG PO, TAB Solifenacin Succinate (Solifenacin Succinate) 10 Mg Tab 10 MG PO, TAB Discharge Statement: "Patient was advised to return to the ER or call 911 if any headaches, dizziness, shortness of breath, chest pain, abdominal pain, bleeding, fevers, or worsening of medical condition. Patient was counseled about treatment plan, medications, possible side effects, patientverbalized understanding. All questions were answered to the best of my ability. This discharge took greater then 30 minutes in planning, reviewing documentation, counseling the patient, and discussing with other team members." ASSESSMENT ASSESSMENT Assessment Dizziness, hypertension, CHF, morbid obesity ETHAN PAREDES MD Jul 20, 2024 14:25
--- NOTE | 2024-07-21 16:47 | DVHSR ---
APPROVED REPORT EXAM: LIMITED Two-dimensional and M-mode echocardiogram with Doppler and color Doppler. Blood Pressure: 111/61 mmHg INDICATION Chest Pain Palpitations Surgery/Intervention CABG: RISK FACTORS Obesity: Height: 5' 9", Weight: 301 DIMENSIONS LVDd4.1 (3.8-5.7cm)LA (2D)4.1 (1.9-4.0cm)Aortic Root3.6 (2.0-3.7cm) LVDs2.4 (2.5-4.0cm)LA (MM) (1.9-4.0cm)Aortic Cusp Exc1.7 (1.5-2.0cm) EF (%) 65.0 (55-70%)Rt. Atrium4.8 (1.9-4.0cm)Asc. Aorta cm IVSd0.9 (0.7-1.1cm)RV (D) (1.8-2.4cm) PWd0.9 (0.7-1.1cm) Mitral Valve MitralMitral Stenosis E wave1.20m/sMV Mean GR.mmHg A wave0.50m/sMV Peak GR.mmHg E/A ratio2.42D MVAcm2 Aortic Valve Aortic ValveAortic Stenosis V11.00m/Shira Mean GR.6mmHg V21.70m/Shira Peak GR.12mmHg LVOT Diameter2.0 (1.8-2.4cm)Doppler AVA1.85cm2 Pulmonic Valve V20.60m/s Tricuspid Valve TR Velocity2.70m/s [id number] Other Information Quality : Technically LimitedRhythm : Technically limited study due to body habitus. Conclusion Sinus rhythm. Biatrial enlargement. Valves are normal. EF of 60% with normal RV function. Doppler is normal. No pericardial effusion masses or vegetations
== END 2024-07-20 16:10 | disposition home or self-care (01) | DRG 309 ==
LOC: ER 18:31 → TELE 20:48 → TELE-CENTR 07-19 01:11
PROVIDERS: ADMIT Nurse Practitioner Family; ATTEND Nurse Practitioner Family
DX: R00.2 Palpitations (principal); Z68.41 Body mass index [BMI] 40.0-44.9, adult; R07.89 Other chest pain; I27.20 Pulmonary hypertension, unspecified; J44.9 Chronic obstructive pulmonary disease, unspecified; I11.0 Hypertensive heart disease with heart failure; I50.9 Heart failure, unspecified; E66.01 Morbid (severe) obesity due to excess calories; K21.9 Gastro-esophageal reflux disease without esophagitis; R42 Dizziness and giddiness; Z95.1 Presence of aortocoronary bypass graft; Z87.891 Personal history of nicotine dependence; Z90.710 Acquired absence of both cervix and uterus
CPT/HCPCS: 36415; 70450; 71045; 80053; 80061; 81001; 83605; 83735; 83880; 84484; 85025; 85379; 93005; 93306; 97163; G0378; J2405

== ENCOUNTER 2024-09-30 03:08 | Emergency (ER) | payer MEDICARE, OTHER ==
[~2024-09-30] VITALS: Ht 175.3 cm; Wt 140.0 kg
[~2024-09-30 03:08] MED LIST changes: +MECL12.586 PO; +SENN-58 PO
--- NOTE | 2024-09-30 03:17 | ED.PDOC ---
History of Present Illness HPI Comments 64-year-old female with PMHx Pulmonary HTN, COPD brought in by EMS presents with a chief complaint of SOB and wheezing. Patient was given a dual nebulizer treatment by EMS and reports some relief of symptoms. Patient reports that she has a inhaler and nebulizer at home, but did not use it. Patient was placed on supplemental oxygen 2L/NC by EMS. Patient denies any chest pain, but endorses chest wall tightness. Time Seen by MD: 03:12 Primary Care Provider: unknown Reviewed Notes: Medications, Allergies Allergies: Coded Allergies: NO KNOWN ALLERGIES (Unverified , 05/05/24) Home Meds Active Scripts Nebulizers (Medneb Compressor Nebuliz) 1 Mis Mis, MIS XX PRN, #1 Prov:SILVINA PACKER MD 09/30/24 Albuterol Sulfate (Albuterol Sulfate) 0.083 % Neb, 1 VIAL NEB Q4HPRN PRN, #50 VIAL 5 Refills Prov:SILVINA PACKER MD 09/30/24 Azithromycin (Azithromycin) 500 Mg Tab, 1 TAB PO DAILY for 5 Days, #5 TAB Prov:SILVINA PACKER MD 09/30/24 Prednisone (Prednisone) 20 Mg Tab, 20 MG PO BID for 5 Days, #10 TAB Prov:SILVINA PACKER MD 09/30/24 Albuterol Sulfate (Albuterol Sulfate Hfa) 108 Mcg/Act Aer, 108 MCG IN Q4HP PRN, #1 AER 5 Refills Prov:SILVINA PACKER MD 09/30/24 Meclizine Hcl (Meclizine Hcl) 12.5 Mg Tab, 1 TAB PO BID, #14 TAB For dizziness/nausea Prov:ETHAN PAREDES MD 07/20/24 Senna (Senokot) 8.6 Mg Tab, 1 TAB PO BID, #40 TAB Prov:ETHAN PAREDES MD 07/20/24 Furosemide (Furosemide) 40 Mg Tab, 40 MG PO BIDD, #90 MG Prov:ETHAN PAREDES MD 07/20/24 Potassium Chloride (POTASSIUM CHLORIDE CR) 10 Meq Tb, 20 MEQ PO DAILY, #30 TAB Prov:ETHAN PAREDES MD 07/20/24 Reported Medications Gabapentin (Gabapentin) 100 Mg Cap, 100 MG PO BID for 30 Days, MG 05/05/24 Omeprazole (Gnp Omeprazole) 20 Mg Tab, 40 MG PO, TAB 05/05/24 Solifenacin Succinate (Solifenacin Succinate) 10 Mg Tab, 10 MG PO, TAB 05/05/24 Magnesium Oxide (MAGNESIUM OXIDE) 400 Mg Tab, 500 MG OR, TAB 05/05/24 Docusate Sodium (Colace) 100 Mg Cap, 1 CAP PO BID, #30 CAP 05/05/24 Methocarbamol (Methocarbamol) 500 Mg Tab, 500 MG PO for 30 Days, MG 05/05/24 Lisinopril (Lisinopril) 10 Mg Tab, 10 MG PO DAILY for 30 Days, MG 05/05/24 Metoprolol Succinate (Metoprolol Succinate Er) 25 Mg Tab, 25 MG PO DAILY for 30 Days, MG 05/05/24 Folic Acid (Folic Acid) 200 Mcg Tab 08/17/10 Information Source: Patient, Emergency Med Personnel Mode of Arrival: EMS Severity: Moderate Timing: Hours Duration: Since onset Prehospital treatment: None Past Medical History PAST MEDICAL HISTORY: GERD Surgical History: Hysterectomy 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 History Family History Family History: Unobtainable Social History Smoker: Non-Smoker Alcohol: Denies ETOH Use Drugs: Denies Drug Use Lives In: Home Constitutional: denies: chills, diaphoresis, fatigue, fever, malaise, sweats, weakness, others EENTM: denies: blurred vision, double vision, ear bleeding, ear discharge, ear drainage, ear pain, ear ringing, eye pain, eye redness, hearing loss, mouth pain, mouth swelling, nasal discharge, nose bleeding, nose congestion, nose pain , photophobia, tearing, throat pain, throat swelling, voice changes, others Respiratory: reports: shortness of breath, wheezing; denies: cough, hemoptysis, orthopnea, SOB at rest, SOB with excertion, stridor, others Cardiovascular: denies: chest pain, dizzy spells, diaphoresis, Dyspnea on exertion, edema, irregular heart beat, left arm pain, lightheadedness, palpitations, PND, syncope, others Gastrointestinal: denies: abdomen distended, abdominal pain, blood streaked bowels, constipated, diarrhea, dysphagia, difficulty swallowing, hematemesis, melena, nausea, poor appetite, poor fluid intake, rectal bleeding, rectal pain, vomiting, others Genitourinary: denies: abnormal vagina bleeding, burning, dyspareunia, dysuria, flank pain, frequency, hematuria, incontinence, pain, , vagina discharge, urgency, others Neurological: denies: dizziness, fainting, headache, left sided numbness, left sided weakness, numbness, paresthesia, pre-existing deficit, right sided numbness, right sided weakness, seizure, speech problems, tingling, tremors, weakness, others Musculoskeletal: denies: back pain, gout, joint pain, joint swelling, muscle pain, muscle stiffness, neck pain, others Integumetry: denies: bruises, change in color, change in hair/nails, dryness, laceration, lesions, lumps, rash, wounds, others Allergic/Immunocompromised: denies: Difficulty Healing, Frequent Infections, Hives, Itching, others Hematologic/Lymphatic: denies: anemia, blood clots, easy bleeding, easy bruising, swollen glands, others Endocrine: denies: excessive hunger, excessive sweating, excessive thirst, excessive urination, flushing, intolerance to cold, intolerance to heat, unexplained weight gain, unexplained weight loss, others Psychiatric: denies: anxiety, bipolar disorder, depression, hopeless, panic disorder, schizophrenia, sleepless, suicidal, others All Other Systems: Reviewed and Negative Physical Exam General Appearance: No Apparent Distress, Normal HEENT: Normal ENT Inspection, Pharynx Normal, TMs Normal Neck: Full Range of Motion, Non-Tender, Normal, Normal Inspection Respiratory: Chest Non-Tender, Lungs Clear, No Accessory Muscle Use, No Respiratory Distress, Normal Breath Sounds Cardiovascular: No Edema, No JVD, No Murmur, No Gallop, Normal Peripheral Pulses, Regular Rate/Rhythm Breast Exam: Deferred Gastrointestinal: No Organomegaly, Non Tender, No Pulsatile Mass, Normal Bowel Sounds, Soft Genitalia: Deferred Pelvic: Deferred Rectal: Deferred Extremities: No calf tenderness, Normal capillary refill, Normal inspection, Normal range of motion, Non-tender, No pedal edema Musculoskeletal : Apperance: Normal Neurologic: Alert, learning disabilities teacher II-XII nml as Tested, No Motor Deficits, Normal Affect, Normal Mood, No Sensory Deficits Cerebellar Function: Normal Reflexes: Normal Skin: Dry, Normal Color, Warm Lymphatic: No Adenopathy Was a procedure done? Was a procedure done?: No Differential Dx Considerations may include: Differential diagnosis includes but is not limited to: asthma, pneumonia, congestive heart failure, pleural effusion, empyema, pulmonary embolus, and others X-Ray, Labs, Meds, VS Vital Signs Date Time Temp Pulse Resp B/P (MAP) Pulse Ox O2 Delivery O2 Flow Rate FiO2 09/30/24 05:06 83 98 Room Air* 0 21 09/30/24 04:05 98.3 83 20 133/73 (93) 95 98.3 09/30/24 03:42 18 96 Room Air* 0 21 09/30/24 03:17 83 09/30/24 03:08 98.3 86 12 155/80 (105) 96 98.3 Lab Test 09/30/24 04:11 09/30/24 03:20 Range/Units Troponin I High Sensitivity < 3 L 3 L </=34 ng/L White Blood Count 9.5 4.4-10.8 10^3/uL Red Blood Count 4.43 4.0-5.20 10^6/uL Hemoglobin 12.1 L 12.2-16.2 g/dL Hematocrit 36.9 36.0-46.0 % Mean Corpuscular Volume 83.2 80.0-100.0 fL Mean Corpuscular Hemoglobin 27.3 L 28.0-32.0 pg Mean Corpuscular Hemoglobin Concent 32.8 32.0-36.0 g/dL Red Cell Distribution Width 16.3 H 11.8-14.3 % Platelet Count 250 140-450 10^3/uL Mean Platelet Volume 8.4 6.9-10.8 fL Neutrophils (%) (Auto) 63.6 37.0-80.0 % Lymphocytes (%) (Auto) 25.4 10.0-50.0 % Monocytes (%) (Auto) 7.6 0.0-12.0 % Eosinophils (%) (Auto) 2.6 0.0-7.0 % Basophils (%) (Auto) 0.8 0.0-2.0 % Neutrophils # (Auto) 6.0 1.6-8.6 10 ^3/uL Lymphocytes # (Auto) 2.4 0.4-5.4 10 ^3/uL Monocytes # (Auto) 0.7 0-1.3 10 ^3/uL Eosinophils # (Auto) 0.2 0-0.8 10 ^3/uL Basophils # (Auto) 0.1 0-0.2 10 ^3/uL Nucleated Red Blood Cells 0.1 % Sodium Level 140 136-145 mmol/L Potassium Level 3.9 3.5-5.1 mmol/L Chloride Level 106 98-107 mmol/L Carbon Dioxide Level 30 20-31 mmol/L Anion Gap 4 L 5-15 Blood Urea Nitrogen 16 9-23 mg/dL Creatinine 1.12 H 0.550-1.02 mg/dL Glomerular Filtration Rate Calc 55 >90 mL/min BUN/Creatinine Ratio 14.3 10.0-20.0 Serum Glucose 83 74-106 mg/dL Calcium Level 10.7 H 8.7-10.4 mg/dL Magnesium Level 2.0 1.6-2.6 mg/dL Total Bilirubin 0.7 0.2-1.0 mg/dL Aspartate Amino Transferase (AST) 66 H 13-40 U/L Alanine Aminotransferase (ALT) 48 H 7-40 U/L Alkaline Phosphatase 146 H 46-116 U/L B-Type Natriuretic Peptide 104.17 0-100 pg/mL Total Protein 7.2 5.7-8.2 g/dL Albumin 4.3 3.2-4.8 g/dL Current Medications Medications (Trade) Dose Ordered Sig/Anil Route Start Time Stop Time Status Last Admin Prednisone 40 mg ONCE ONCE PO 09/30/24 03:30 09/30/24 03:31 DC 09/30/24 03:56 Albuterol (Ventolin Medneb) 5 mg ONCE ONCE NEB 09/30/24 03:30 09/30/24 03:31 DC 09/30/24 03:41 Ipratropium [place] (Atrovent Medneb) 0.5 mg ONCE ONCE NEB 09/30/24 03:30 09/30/24 03:31 DC 09/30/24 03:42 Time of 1ST Reevaluation: 03:42 Reevaluation 1ST: Unchanged Patient Education/Counseling: Diagnosis, Treatment, Prognosis Family Education/Counseling: No Family Present Departure 1 Departure Time of Disposition: 04:40 Impression: Primary Impression: Bronchospasm Additional Impression: Pulmonary hypertension Disposition: 01 HOME / SELF CARE / HOMELESS Condition: Stable e-Prescriptions Nebulizers (Medneb Compressor Nebuliz) 1 Mis Mis MIS XX PRN, #1 Prov: SILVINA PACKER MD 09/30/24 Albuterol Sulfate (Albuterol Sulfate) 0.083 % Neb 1 VIAL NEB Q4HPRN PRN, #50 VIAL 5 Refills Prov: SILVINA PACKER MD 09/30/24 Azithromycin (Azithromycin) 500 Mg Tab 1 TAB PO DAILY for 5 Days, #5 TAB Prov: SILVINA PACKER MD 09/30/24 Prednisone (Prednisone) 20 Mg Tab 20 MG PO BID for 5 Days, #10 TAB Prov: SILVINA PACKER MD 09/30/24 Albuterol Sulfate (Albuterol Sulfate Hfa) 108 Mcg/Act Aer 108 MCG IN Q4HP PRN, #1 AER 5 Refills Prov: SILVINA PACKER MD 09/30/24 Discharged With: Self Critical Care Note Critical Care Time?: No Stability Stability form required: No Heart Score Heart Score: Heart Score Response (Comments) Value History N/A 0 EKG N/A 0 Age N/A 0 Risk Factors N/A 0 Troponin N/A 0 Total 0 I personally scribed for SILVINA PACKER MD ([email or web address]) on 09/30/24 at 03:17. Electronically submitted by Don Garnica ([email or web address]). SILVINA PACKER MD Sep 30, 2024 03:17
[2024-09-30] MEDS: ALBUTEROL SULF 2.5 MG/0.5ML(0.5%) NEB SOLN NEB ONE (03:41)
[2024-09-30] MEDS: IPRATROPIUM BROM 0.5 MG/2.5ML INH SOL NEB ONE (03:42)
[2024-09-30 03:50] LABS: Basophils # (auto) 0.1 10 ^3/uL (0-0.2); Basophils % (auto) 0.8 % (0.0-2.0); Eosinophils # (auto) 0.2 10 ^3/uL (0-0.8); Eosinophils % (auto) 2.6 % (0.0-7.0); Hematocrit 36.9 % (36.0-46.0); Hemoglobin 12.1 g/dL (12.2-16.2); Lymphocytes # (auto) 2.4 10 ^3/uL (0.4-5.4); Lymphocytes % (auto) 25.4 % (10.0-50.0); Mean Corpuscular Hemoglobin 27.3 pg (28.0-32.0); Mean Corpuscular Hgb Conc. 32.8 g/dL (32.0-36.0); Mean Corpuscular Volume 83.2 fL (80.0-100.0); Monocytes # (auto) 0.7 10 ^3/uL (0-1.3); Monocytes % (auto) 7.6 % (0.0-12.0); Neutrophils % (auto) 63.6 % (37.0-80.0); Nucleated Red Blood Cells % 0.1 %; Platelet Count (auto) 250 10^3/uL (140-450); Red Blood Cells 4.43 10^6/uL (4.0-5.20); Red Cell Distribution Width 16.3 % (11.8-14.3); White Blood Cell 9.5 10^3/uL (4.4-10.8)
--- NOTE | 2024-09-30 03:51 | DVH ---
CHEST RADIOGRAPH Indication: SOB Technique: Single frontal view of the chest was obtained COMPARISON: XY CHEST PORTABLE on DOS: 07/18/24, XY CHEST PORTABLE on DOS: 01/19/23 FINDINGS: Lines and Tubes: None Lungs: Clear Pleura: No effusion. No pneumothorax. Cardiomediastinal contours: Unremarkable Bones: Unremarkable IMPRESSION: 1. No acute disease.
[2024-09-30] MEDS: predniSONE 20 MG TAB PO ONE (03:56)
[2024-09-30 04:05] VITALS: BP 133/73; RESP 20; TEMP 98.3
[2024-09-30 04:05] LABS: Albumin 4.3 g/dL (3.2-4.8); Anion Gap 4 (5-15); BUN/Creatinine Ratio 14.3 (10.0-20.0); Bilirubin, Total 0.7 mg/dL (0.2-1.0); Blood Urea Nitrogen 16 mg/dL (9-23); Carbon Dioxide 30 mmol/L (20-31); Chloride 106 mmol/L (98-107); Glucose 83 mg/dL (74-106); Potassium 3.9 mmol/L (3.5-5.1); Sodium 140 mmol/L (136-145); Total Protein 7.2 g/dL (5.7-8.2)
[2024-09-30 04:06] LABS: Alanine Aminotransferase 48 U/L (7-40); Alkaline Phosphatase 146 U/L (46-116); Aspartate Aminotransferase 66 U/L (13-40); Calcium 10.7 mg/dL (8.7-10.4)
[2024-09-30] MEDS ORDERED: PRED20TA2 PO (05:03)
[2024-09-30] MEDS ORDERED: AZIT500T66 PO (05:03)
[2024-09-30] MEDS ORDERED: ALBU108A5 IN (05:03)
[2024-09-30 05:06] VITALS: PULSE 83; O2SAT 98
[2024-09-30] MEDS ORDERED: NEBU1MIS48 XX (05:07)
[2024-09-30] MEDS ORDERED: ALBU0.084 NEB (05:07)
--- NOTE | 2024-09-30 19:13 | ECG ---
[facility] Test Date: 2024-09-30 Test Time: 03:17:24 Pat Name: TONYA SMILEY Department: ED Room: Gender: F Director Business Intelligence: SANDRA : 1960 Requested By: SILVINA PACKER Order Number: [id number] Reading MD: Dylan Price Measurements Intervals [place] Rate: 83 P: -77 NE: 164 QRS: 67 QRSD: 90 T: 47 QT: 363 QTc: 427 Interpretive Statements Sinus or ectopic atrial rhythm Low voltage, precordial leads Electronically Signed On 10-01-2024 14:20:12 PDT by Dylan Price Please click the below link to view image of tracing.
== END 2024-09-30 05:40 | disposition home or self-care (01) ==
LOC: EDBD 03:08 → ER 03:08
DX: J98.01 Acute bronchospasm (principal); I27.20 Pulmonary hypertension, unspecified; Z90.710 Acquired absence of both cervix and uterus; Z79.899 Other long term (current) drug therapy; Z79.52 Long term (current) use of systemic steroids
CPT/HCPCS: 36415; 71045; 80053; 83735; 83880; 84484; 85025; 93005; 94640; 99285; J7512

== ENCOUNTER 2024-12-19 08:45 | Inpatient (IN) | payer OTHER ==
[~2024-12-19] VITALS: Ht 175.3 cm; Wt 143.2 kg
[~2024-12-19 08:45] MED LIST changes: +ALBU0.084 NEB; +ALBU108A5 IN; +AZIT500T66 PO; +NEBU1MIS48 XX; +PRED20TA2 PO
[2024-12-19 09:33] LABS: Chloride 106 mmol/L (98-107); Sodium 138 mmol/L (136-145)
[2024-12-19 09:34] LABS: Anion Gap 9 (5-15); Carbon Dioxide 23 mmol/L (20-31)
--- NOTE | 2024-12-19 09:36 | ED.PDOC ---
HPI Comments 64 y/o F, with PMHx of COPD and HTN presents to the ED for CC of palpitations. Patient states, she has been experiencing palpitations with a heart rate of 159- 160's onset, this morning (12/19/24). Patient relays, associated symptoms of shortness of breath and headache. Patient complains of current substernal non- radiating chest pain. Patient denies dizziness, fatigue, weakness, nausea, vomiting, or numbness. No other symptoms or modifying factors present at this time. Chief Complaint: Palpitations Time Seen by MD: 09:10 Primary Care Provider: PAULA Reviewed Notes: Nurses Notes, Medications, Allergies Allergies: Coded Allergies: NO KNOWN ALLERGIES (Unverified , 05/05/24) Home Meds Active Scripts Nebulizers (Medneb Compressor Nebuliz) 1 Mis Mis, MIS XX PRN, #1 Prov:SILVINA PACKER MD 09/30/24 Albuterol Sulfate (Albuterol Sulfate) 0.083 % Neb, 1 VIAL NEB Q4HPRN PRN, #50 VIAL 5 Refills Prov:SILVINA PACKER MD 09/30/24 Azithromycin (Azithromycin) 500 Mg Tab, 1 TAB PO DAILY for 5 Days, #5 TAB Prov:SILVINA PACKER MD 09/30/24 Prednisone (Prednisone) 20 Mg Tab, 20 MG PO BID for 5 Days, #10 TAB Prov:SILVINA PACKER MD 09/30/24 Albuterol Sulfate (Albuterol Sulfate Hfa) 108 Mcg/Act Aer, 108 MCG IN Q4HP PRN, #1 AER 5 Refills Prov:SILVINA PACKER MD 09/30/24 Meclizine Hcl (Meclizine Hcl) 12.5 Mg Tab, 1 TAB PO BID, #14 TAB For dizziness/nausea Prov:ETHAN PAREDES MD 07/20/24 Senna (Senokot) 8.6 Mg Tab, 1 TAB PO BID, #40 TAB Prov:ETHAN PAREDES MD 07/20/24 Furosemide (Furosemide) 40 Mg Tab, 40 MG PO BIDD, #90 MG Prov:ETHAN PAREDES MD 07/20/24 Potassium Chloride (POTASSIUM CHLORIDE CR) 10 Meq Tb, 20 MEQ PO DAILY, #30 TAB Prov:ETHAN PAREDES MD 07/20/24 Reported Medications Gabapentin (Gabapentin) 100 Mg Cap, 100 MG PO BID for 30 Days, MG 05/05/24 Omeprazole (Gnp Omeprazole) 20 Mg Tab, 40 MG PO, TAB 05/05/24 Solifenacin Succinate (Solifenacin Succinate) 10 Mg Tab, 10 MG PO, TAB 05/05/24 Magnesium Oxide (MAGNESIUM OXIDE) 400 Mg Tab, 500 MG OR, TAB 05/05/24 Docusate Sodium (Colace) 100 Mg Cap, 1 CAP PO BID, #30 CAP 05/05/24 Methocarbamol (Methocarbamol) 500 Mg Tab, 500 MG PO for 30 Days, MG 05/05/24 Lisinopril (Lisinopril) 10 Mg Tab, 10 MG PO DAILY for 30 Days, MG 05/05/24 Metoprolol Succinate (Metoprolol Succinate Er) 25 Mg Tab, 25 MG PO DAILY for 30 Days, MG 05/05/24 Folic Acid (Folic Acid) 200 Mcg Tab 08/17/10 Information Source: Patient Mode of Arrival: Ambulatory Severity: Moderate Timing: Hours Duration: Since onset Prehospital treatment: None Location: Substernal Radiation: No Radiation Onset: At Rest Cardiac Risk Factors: None PE Risk Factors: None History of: None Modifying Factors: Nothing Associated Signs and Symptoms: SOB Past Medical History PAST MEDICAL HISTORY: GERD Surgical History: CABG, Hysterectomy MANAGER CIVIL History: No Pertinent MANAGER CIVIL History Family History Family History: Unobtainable Social History Smoker: Non-Smoker Alcohol: Denies ETOH Use Drugs: Denies Drug Use Lives In: Home Constitutional: denies: chills, diaphoresis, fatigue, fever, malaise, sweats, weakness, others EENTM: denies: blurred vision, double vision, ear bleeding, ear discharge, ear drainage, ear pain, ear ringing, eye pain, eye redness, hearing loss, mouth pain, mouth swelling, nasal discharge, nose bleeding, nose congestion, nose pain, photophobia, tearing, throat pain, throat swelling, voice changes, others Respiratory: reports: shortness of breath; denies: cough, hemoptysis, orthopnea, SOB at rest, SOB with excertion, stridor, wheezing, others Cardiovascular: reports: chest pain, palpitations; denies: dizzy spells, diaphoresis, Dyspnea on exertion, edema, irregular heart beat, left arm pain, lightheadedness, PND, syncope, others Gastrointestinal: denies: abdomen distended, abdominal pain, blood streaked bowels, constipated, diarrhea, dysphagia, difficulty swallowing, hematemesis, melena, nausea, poor appetite, poor fluid intake, rectal bleeding, rectal pain, vomiting, others Genitourinary: denies: abnormal vagina bleeding, burning, dyspareunia, dysuria, flank pain, frequency, hematuria, incontinence, pain, , vagina discharge, urgency, others Neurological: reports: headache; denies: dizziness, fainting, left sided numbness, left sided weakness, numbness, paresthesia, pre-existing deficit, right sided numbness, right sided weakness, seizure, speech problems, tingling, tremors, weakness, others Musculoskeletal: denies: back pain, gout, joint pain, joint swelling, muscle pain, muscle stiffness, neck pain, others Integumetry: denies: bruises, change in color, change in hair/nails, dryness, laceration, lesions, lumps, rash, wounds, others Allergic/Immunocompromised: denies: Difficulty Healing, Frequent Infections, Hives, Itching, others Hematologic/Lymphatic: denies: anemia, blood clots, easy bleeding, easy bruising, swollen glands, others Endocrine: denies: excessive hunger, excessive sweating, excessive thirst, excessive urination, flushing, intolerance to cold, intolerance to heat, unexplained weight gain, unexplained weight loss, others Psychiatric: denies: anxiety, bipolar disorder, depression, hopeless, panic disorder, schizophrenia, sleepless, suicidal, others All Other Systems: Reviewed and Negative Physical Exam General Appearance: Moderate Distress HEENT: Normal ENT Inspection, Pharynx Normal, TMs Normal Neck: Full Range of Motion, Non-Tender, Normal, Normal Inspection Respiratory: Chest Non-Tender, Lungs Clear, No Accessory Muscle Use, No Respiratory Distress, Normal Breath Sounds Cardiovascular: No Edema, No JVD, No Murmur, No Gallop, Normal Peripheral Pulses, Tachycardia Breast Exam: Deferred Gastrointestinal: No Organomegaly, Non Tender, No Pulsatile Mass, Normal Bowel Sounds, Soft Genitalia: Deferred Pelvic: Deferred Rectal: Deferred Extremities: No calf tenderness, Normal capillary refill, Normal inspection, Normal range of motion, Non-tender, No pedal edema Musculoskeletal : Apperance: Normal Neurologic: Alert, 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 Was a procedure done?: No CP Differential Dx Differential Diagnosis: A-fib, A-Flutter, Angina, Anxiety / Panic Attack, Atrial Dysrhythmia, Electrolyte Disorder, Sinus Tachycardia Differential Diagnosis: HTN Essential, HTN Accelerated Differential Diagnosis: Angina, Chest Wall Pain, Costochondritis X-Ray, Labs, Meds, VS Vital Signs Date Time Temp Pulse Resp B/P (MAP) Pulse Ox O2 Delivery O2 Flow Rate FiO2 12/19/24 11:29 112/71 12/19/24 11:20 98.1 134 20 112/71 (85) 96 98.1 12/19/24 10:24 97.7 125 20 118/75 (89) 98 97.7 12/19/24 10:24 Room Air* 0 21 12/19/24 10:21 118/75 12/19/24 09:45 144 12/19/24 08:55 145 12/19/24 08:48 98.1 142 20 108/66 (80) 98 98.1 Lab Test 12/19/24 13:06 12/19/24 12:54 12/19/24 10:43 12/19/24 09:06 Range/Units Troponin I High Sensitivity 3 L < 3 L < 3 L </=34 ng/L Urine Color Colorless Yellow Urine Clarity Clear Clear Urine pH 5.0 5.0-9.0 Urine Specific [place] 1.003 1.001-1.035 Urine Protein Negative Negative Urine Ketones Negative Negative Urine Blood Negative Negative /uL Urine Nitrite Negative Negative Urine Bilirubin Negative Negative Urine Urobilinogen Normal Negative mg/dL Urine Leukocyte Esterase Negative Negative /uL Urine RBC None seen 0 - 4 /hpf Urine Microscopic WBC 1 0-5 /HPF Urine Squamous Epithelial Cells Few <5 /hpf Urine Bacteria Mod H None Seen /hpf Urine Glucose Normal Normal mg/dL White Blood Count 7.5 4.4-10.8 10^3/uL Red Blood Count 5.10 4.0-5.20 10^6/uL Hemoglobin 13.8 12.2-16.2 g/dL Hematocrit 42.3 36.0-46.0 % Mean Corpuscular Volume 82.9 80.0-100.0 fL Mean Corpuscular Hemoglobin 27.1 L 28.0-32.0 pg Mean Corpuscular Hemoglobin Concent 32.7 32.0-36.0 g/dL Red Cell Distribution Width 16.5 H 11.8-14.3 % Platelet Count 291 140-450 10^3/uL Mean Platelet Volume 9.1 6.9-10.8 fL Neutrophils (%) (Auto) 57.9 37.0-80.0 % Lymphocytes (%) (Auto) 31.5 10.0-50.0 % Monocytes (%) (Auto) 7.0 0.0-12.0 % Eosinophils (%) (Auto) 3.0 0.0-7.0 % Basophils (%) (Auto) 0.6 0.0-2.0 % Neutrophils # (Auto) 4.3 1.6-8.6 10 ^3/uL Lymphocytes # (Auto) 2.4 0.4-5.4 10 ^3/uL Monocytes # (Auto) 0.5 0-1.3 10 ^3/uL Eosinophils # (Auto) 0.2 0-0.8 10 ^3/uL Basophils # (Auto) 0 0-0.2 10 ^3/uL Nucleated Red Blood Cells 0.1 % Sodium Level 138 136-145 mmol/L Potassium Level 5.1 3.5-5.1 mmol/L Chloride Level 106 98-107 mmol/L Carbon Dioxide Level 23 20-31 mmol/L Anion Gap 9 5-15 Blood Urea Nitrogen 16 9-23 mg/dL Creatinine 1.07 H 0.550-1.02 mg/dL Glomerular Filtration Rate Calc 58 >90 mL/min BUN/Creatinine Ratio 15.0 10.0-20.0 Serum Glucose 103 74-106 mg/dL Calcium Level 11.0 H 8.7-10.4 mg/dL Current Medications Medications (Trade) Dose Ordered Sig/Anil Route Start Time Stop Time Status Last Admin Aspirin 325 mg ONCE ONCE PO 12/19/24 09:45 12/19/24 09:46 DC 12/19/24 10:14 Nitroglycerin (Ntrostat Sublingual) 0.4 mg ONCE ONCE SL 12/19/24 09:45 12/19/24 09:46 DC 12/19/24 10:21 Patient alert. Complaining of palpitation. Has multiple symptoms. Tachycardia. Saturation pristine on room air. WBC within normal limits. Hemoglobin within normal limits. Reviewed her history. Explained to the patient. Continue to monitor. Time of 1ST Reevaluation: 09:40 Reevaluation 1ST: Unchanged Patient Education/Counseling: Diagnosis, Treatment Family Education/Counseling: No Family Present SEPSIS Sepsis Screen Date sepsis recognized/suspect: Dec 19, 2024 Time Sepsis recognized/suspect: 847 Recent Procedure: No On Antibiotic Therapy: No Respiratory Rate >20: No Heart Rate >90: Yes Temp<36 C (96.8 F) or >38.3 C: No SBP <90 or MAP <65 mmHG: No New Acute Mental Status Change: No Is the patient on CPAP, BIPAP,: No Physician Orders Electrocardigram (12/19/24 09:48) Electrocardigram (12/19/24 11:48) Vital Signs Date Time Temp Pulse Resp B/P (MAP) Pulse Ox O2 Delivery O2 Flow Rate FiO2 12/19/24 11:29 112/71 12/19/24 11:20 98.1 134 20 112/71 (85) 96 98.1 12/19/24 10:24 97.7 125 20 118/75 (89) 98 97.7 12/19/24 10:24 Room Air* 0 21 12/19/24 10:21 118/75 12/19/24 09:45 144 12/19/24 08:55 145 12/19/24 08:48 98.1 142 20 108/66 (80) 98 98.1 Laboratory Tests Test 12/19/24 09:06 White Blood Count 7.5 10^3/uL (4.4-10.8) Medications Medications Dose Ordered Sig/Anil Route Start Time Stop Time Status Last Admin Dose Admin Aspirin 325 mg ONCE ONCE PO 12/19/24 09:45 12/19/24 09:46 DC 12/19/24 10:14 Nitroglycerin 0.4 mg ONCE ONCE SL 12/19/24 09:45 12/19/24 09:46 DC 12/19/24 10:21 Departure 1 Departure Time of Disposition: 09:43 Impression: Primary Impression: Afib Qualified Codes: I48.0 - Paroxysmal atrial fibrillation Additional Impressions: Chest pain of unknown etiology Pulmonary hypertension Disposition: ADMITTED INPATIENT Admit to: Med Surg Condition: Guarded Critical Care Note Critical Care Time?: Yes (45 min-critical care time only) Critical care comment: Tachycardia continue to monitor Stability Stability form required: No Heart Score Heart Score: Heart Score Response (Comments) Value History Slightly Suspicious 0 EKG Normal 0 Age 45-64 1 Risk Factors 1 or 2 risk factors 1 Troponin Normal limit 0 Total 2 I personally scribed for ELA CARLTON MD ([email or web address]) on 12/19/24 at 09:36. Electronically submitted by Stacie Edmond ([email or web address]). ELA CARLTON MD Dec 19, 2024 09:36
[2024-12-19 09:39] LABS: Glucose 103 mg/dL (74-106)
[2024-12-19 09:40] LABS: Basophils # (auto) 0 10 ^3/uL (0-0.2); Basophils % (auto) 0.6 % (0.0-2.0); Eosinophils # (auto) 0.2 10 ^3/uL (0-0.8); Hematocrit 42.3 % (36.0-46.0); Hemoglobin 13.8 g/dL (12.2-16.2); Lymphocytes # (auto) 2.4 10 ^3/uL (0.4-5.4); Lymphocytes % (auto) 31.5 % (10.0-50.0); Mean Corpuscular Hemoglobin 27.1 pg (28.0-32.0); Mean Corpuscular Hgb Conc. 32.7 g/dL (32.0-36.0); Mean Corpuscular Volume 82.9 fL (80.0-100.0); Monocytes # (auto) 0.5 10 ^3/uL (0-1.3); Neutrophils # (auto) 4.3 10 ^3/uL (1.6-8.6); Neutrophils % (auto) 57.9 % (37.0-80.0); Nucleated Red Blood Cells % 0.1 %; Platelet Count (auto) 291 10^3/uL (140-450); Red Cell Distribution Width 16.5 % (11.8-14.3); White Blood Cell 7.5 10^3/uL (4.4-10.8)
[2024-12-19 09:44] LABS: Blood Urea Nitrogen 16 mg/dL (9-23); Potassium 5.1 mmol/L (3.5-5.1)
--- NOTE | 2024-12-19 09:46 | ECG ---
[facility] Test Date: 2024-12-19 Test Time: 09:45:04 Pat Name: TONYA SMILEY Department: ER Room: [address] [place] [address] Gender: F [facility] Sales: MIREILLE : 1960 Requested By: ELA CARLTON Order Number: [id number] Reading MD: Dylan Price Measurements Intervals [place] Rate: 144 P: 0 ID: 0 QRS: 5 QRSD: 92 T: 65 QT: 351 QTc: 544 Interpretive Statements Atrial flutter Minimal ST depression, inferior leads Minimal ST elevation, lateral leads Prolonged QT interval Electronically Signed On 12-19-2024 22:57:44 PDT by Dylan Price Please click the below link to view image of tracing.
[2024-12-19] MEDS: ASPirin 325 MG TAB PO ONE (10:14)
[2024-12-19] MEDS: NITROGLYCERIN 0.4 MG SL TAB SL ONE (10:21)
[2024-12-19 13:02] LABS: Urine Bacteria MOD /hpf (None Seen); Urine Blood Negative /uL (Negative); Urine Clarity Clear (Clear); Urine Color Colorless (Yellow); Urine Protein, UAD Negative (Negative); Urine Specific Gravity 1.003 (1.001-1.035); Urine Squamous Epithelial Cell FEW /hpf (<5); Urine Urobilinogen Normal (Negative); Urine WBC 1 /HPF (0-5)
[2024-12-19] MEDS: AMIODARONE 360mg/200mL PREMIX 200 ML IV ONE ×2 (15:15→21:15)
[2024-12-19] MEDS ORDERED: ACETAMINOPHEN 325 MG TAB PO PRN (16:15)
[2024-12-19] MEDS ORDERED: NITROGLYCERIN 0.4 MG SL TAB SL PRN (16:15)
--- NOTE | 2024-12-19 16:25 | DVHHP2 ---
History of Present Illness Reason for Visit: Shortness of breaths and chest tightness for one day History of Present Illness 64-year-old female with a known history of hypertension, dyslipidemia, AFib, chronic pain syndrome, known history of open heart surgery for some fall in the hard in the past presented to the hospital with shortness of breath and palpitations found to have AFib with RVR. Patient is currently denies any chest pain but does complaining of some palpitations. Patient does have known history of AFib currently on aspirin beta estiven. Denies any fevers chills nausea vomiting diarrhea hematemesis hematochezia melena dysuria hematuria. Cardiovascular: AFIB, HTN Pulmonary: Other (Pulmonary hypertension) Past Surgical History: Other (Bilateral shoulder surgeries.), Total knee replacement (Left side) ALCOHOL: none Drugs: None Review of Systems Review of Systems Twelve review of system are negative besides mentioned above. Allergies: Coded Allergies: NO KNOWN ALLERGIES (Unverified , 05/05/24) Medications Current Medications Medications Dose Ordered Sig/Anil Route Start Time Stop Time Status Last Admin Dose Admin Acetaminophen/ Hydrocodone Bitart 1 tab Q4HP PRN PO 12/19/24 16:15 Ondansetron HCl 4 mg Q4HP PRN IV 12/19/24 16:15 Enoxaparin Sodium 40 mg DAILY SC 12/20/24 10:00 Acetaminophen 650 mg Q6HP PRN PO 12/19/24 16:15 Nitroglycerin 0.4 mg Q5MINP PRN SL 12/19/24 16:15 Morphine Sulfate 2 mg Q30M PRN IV 12/19/24 16:15 Metoprolol Tartrate 25 mg BID PO 12/19/24 16:30 Aspirin 81 mg DAILY PO 12/20/24 10:00 UNV Atorvastatin Calcium 40 mg HS PO 12/19/24 22:00 UNV Exam Vital Signs Vital Signs Date Time Temp Pulse Resp B/P (MAP) Pulse Ox O2 Delivery O2 Flow Rate FiO2 12/19/24 12:00 126 12/19/24 11:29 112/71 12/19/24 11:20 98.1 20 96 98.1 12/19/24 10:24 Room Air* 0 21 Exam HEENT pupils are reactive Neck is supple CV is S1-S2 irregularly irregular rate and rhythm with rate between 120 to 130s Respiratory bilateral clear GI positive bowel sound Extremity no pedal edema 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 Labs/Xrays Labs Test 12/19/24 13:06 12/19/24 12:54 12/19/24 09:06 Range/Units Troponin I High Sensitivity 3 L </=34 ng/L Urine Color Colorless Yellow Urine Clarity Clear Clear Urine pH 5.0 5.0-9.0 Urine Specific [place] 1.003 1.001-1.035 Urine Protein Negative Negative Urine Ketones Negative Negative Urine Blood Negative Negative /uL Urine Nitrite Negative Negative Urine Bilirubin Negative Negative Urine Urobilinogen Normal Negative mg/dL Urine Leukocyte Esterase Negative Negative /uL Urine RBC None seen 0 - 4 /hpf Urine Microscopic WBC 1 0-5 /HPF Urine Squamous Epithelial Cells Few <5 /hpf Urine Bacteria Mod H None Seen /hpf Urine Glucose Normal Normal mg/dL White Blood Count 7.5 4.4-10.8 10^3/uL Red Blood Count 5.10 4.0-5.20 10^6/uL Hemoglobin 13.8 12.2-16.2 g/dL Hematocrit 42.3 36.0-46.0 % Mean Corpuscular Volume 82.9 80.0-100.0 fL Mean Corpuscular Hemoglobin 27.1 L 28.0-32.0 pg Mean Corpuscular Hemoglobin Concent 32.7 32.0-36.0 g/dL Red Cell Distribution Width 16.5 H 11.8-14.3 % Platelet Count 291 140-450 10^3/uL Mean Platelet Volume 9.1 6.9-10.8 fL Neutrophils (%) (Auto) 57.9 37.0-80.0 % Lymphocytes (%) (Auto) 31.5 10.0-50.0 % Monocytes (%) (Auto) 7.0 0.0-12.0 % Eosinophils (%) (Auto) 3.0 0.0-7.0 % Basophils (%) (Auto) 0.6 0.0-2.0 % Neutrophils # (Auto) 4.3 1.6-8.6 10 ^3/uL Lymphocytes # (Auto) 2.4 0.4-5.4 10 ^3/uL Monocytes # (Auto) 0.5 0-1.3 10 ^3/uL Eosinophils # (Auto) 0.2 0-0.8 10 ^3/uL Basophils # (Auto) 0 0-0.2 10 ^3/uL Nucleated Red Blood Cells 0.1 % Sodium Level 138 136-145 mmol/L Potassium Level 5.1 3.5-5.1 mmol/L Chloride Level 106 98-107 mmol/L Carbon Dioxide Level 23 20-31 mmol/L Anion Gap 9 5-15 Blood Urea Nitrogen 16 9-23 mg/dL Creatinine 1.07 H 0.550-1.02 mg/dL Glomerular Filtration Rate Calc 58 >90 mL/min BUN/Creatinine Ratio 15.0 10.0-20.0 Serum Glucose 103 74-106 mg/dL Calcium Level 11.0 H 8.7-10.4 mg/dL Assessment/Plan Assessment/Plan 63-year-old female with a known history of AFib, hypertension, pulmonary hypertension, previous history of open heart surgery presented to the hospital with chest tightness palpitations and shortness of breaths found to have 1. AFib with RVR 2. Chest pain rule out [place] 3. Previous history of chronic AFib currently on aspirin and beta estiven 4. Pulmonary hypertension 5. COPD 6. Hypertension 7. Dyslipidemia 8. Previous history of open heart surgery for some septal defect -admit to [facility], aspirin statin beta estiven, 2D echo cardiology consultation DVT prophylaxis with the Lovenox Plan discussed with: Patient My Orders Orders - TOMAS QUEVEDO MD Procedure Category Date Status Time Admit ADMIT 12/19/24 Transmitted 16:06 Code Status CODE 12/19/24 Transmitted 16:06 2 Gm Sodium Diet DIET 12/19/24 Transmitted Dinner Hydrocodone-Acet PHA 12/19/24 In Process 5/325mg Tab ([place] 16:15 Ondansetron Hcl PHA 12/19/24 In Process (Zofran) 16:15 Enoxaparin Sodium PHA 12/20/24 In Process (Lovenox) 10:00 Complete Blood Count LAB 12/20/24 Verified 04:00 Comprehensive LAB 12/20/24 Verified Metabolic Panel 04:00 Echo 2d Mode Cardiac US 12/19/24 Logged DOP 16:06 Condition: Fair RANJAN 12/19/24 In Process 16:06 Acetaminophen Tablet PHA 12/19/24 In Process (Tylenol Tablet) 16:15 Nitroglycerin PHA 12/19/24 In Process Sublingual (Ntrostat 16:15 Morphine Sulfate PHA 12/19/24 In Process Injection 16:15 Stat Ekg For Chest RANJAN 12/19/24 In Process Pain 16:06 Notify Md Of Changes [facility] 12/19/24 In Process From Base 16:06 Retoucher Photoengraving For [facility] 12/19/24 In Process 24 Hours 16:06 Emergency Dysrhythmia [facility] 12/19/24 In Process Protocol 16:06 Rhythm Strips Once [facility] 12/19/24 In Process Every Shift 16:06 Oxygen By Nasal RT 12/19/24 Transmitted Cannula 16:06 * Cardiology Consult CONS 12/19/24 Transmitted 16:06 Metoprolol Tartrate [facility] 12/19/24 In Process Tablet (Lopressor Ta 16:30 Aspirin Tablet [facility] 12/19/24 Logged 16:30 Aspirin Tablet [facility] 12/20/24 Logged 10:00 Atorvastatin (Lipitor) [facility] 12/19/24 Logged 22:00 Metoprolol Inj [facility] 12/19/24 Verified (Lopressor) 16:30 Date of Service: Dec 19, 2024 Billing Provider: TOMAS QUEVEDO MD Common Visit Codes: NOT BILLABLE TOMAS QUEVEDO MD Dec 19, 2024 16:25
[2024-12-19] MEDS ORDERED: METOPROLOL TARTRATE 1MG/1ML-5ML VIAL IV PRN (16:30)
[2024-12-19] MEDS ORDERED: ASPirin 81 mg TAB PO ONE (16:30)
[2024-12-19] MEDS: METOPROLOL TARTRATE 25 MG TAB PO SCH (17:06)
[2024-12-19] MEDS: SODIUM CHLORIDE 0.9% 1,000 ML IV ONE (22:30)
[2024-12-19] MEDS: ATORVASTATIN 20 MG TAB PO SCH (23:00)
[2024-12-19] MEDS: MORPHINE SULFATE INJ 2 MG/ml SYRG IV PRN (23:01)
[2024-12-19] MEDS: ONDANSETRON HCL 4 MG/2 ML VIAL IV PRN (23:05)
[2024-12-20] VITALS (9 sets, daily range): BP systolic 110–141; BP diastolic 65–92; PULSE 74–110; RESP 16–20; TEMP 97–98.5; O2SAT 96–99
[2024-12-20] MEDS ORDERED: ACET300T58 PO (03:23)
[2024-12-20] MEDS ORDERED: CHOL20007 PO (03:23)
[2024-12-20] MEDS ORDERED: OXYC325T14 PO (03:23)
[2024-12-20] MEDS ORDERED: ASPI1TAB20 PO (03:23)
[2024-12-20] MEDS ORDERED: ATOR-507 PO (03:23)
[2024-12-20 05:52] LABS: Basophils # (auto) 0 10 ^3/uL (0-0.2); Basophils % (auto) 0.6 % (0.0-2.0); Eosinophils # (auto) 0.3 10 ^3/uL (0-0.8); Eosinophils % (auto) 3.5 % (0.0-7.0); Hematocrit 38.8 % (36.0-46.0); Hemoglobin 12.9 g/dL (12.2-16.2); Lymphocytes # (auto) 2.3 10 ^3/uL (0.4-5.4); Lymphocytes % (auto) 29.9 % (10.0-50.0); Mean Corpuscular Hemoglobin 27.4 pg (28.0-32.0); Mean Corpuscular Hgb Conc. 33.3 g/dL (32.0-36.0); Mean Corpuscular Volume 82.4 fL (80.0-100.0); Monocytes # (auto) 0.7 10 ^3/uL (0-1.3); Monocytes % (auto) 8.6 % (0.0-12.0); Neutrophils # (auto) 4.4 10 ^3/uL (1.6-8.6); Neutrophils % (auto) 57.4 % (37.0-80.0); Nucleated Red Blood Cells % 0.2 %; Platelet Count (auto) 238 10^3/uL (140-450); Red Blood Cells 4.71 10^6/uL (4.0-5.20); Red Cell Distribution Width 16.4 % (11.8-14.3); White Blood Cell 7.6 10^3/uL (4.4-10.8)
[2024-12-20 06:16] LABS: Alanine Aminotransferase 23 U/L (7-40); Alkaline Phosphatase 109 U/L (46-116); Anion Gap 9 (5-15); Aspartate Aminotransferase 19 U/L (<34); BUN/Creatinine Ratio 21.6 (10.0-20.0); Blood Urea Nitrogen 19 mg/dL (9-23); Carbon Dioxide 26 mmol/L (20-31); Chloride 103 mmol/L (98-107); Potassium 4.6 mmol/L (3.5-5.1); Sodium 138 mmol/L (136-145); Total Protein 6.7 g/dL (5.7-8.2)
[2024-12-20 06:24] LABS: Calcium 10.4 mg/dL (8.7-10.4); Glucose 107 mg/dL (74-106)
[2024-12-20] MEDS: ASPirin 81 mg TAB PO SCH (11:03)
[2024-12-20] MEDS: ENOXAPARIN SOD 40 MG/0.4 ML SYRINGE SC SCH (11:03)
--- NOTE | 2024-12-20 12:26 | DVHCONRES ---
Date Seen: Dec 20, 2024 Resident Creating Document: YUSEF ISSA RESIDENT Reason for Consultation AFib with RVR History of Present Illness Is a 64-year-old female with past medical history of COPD, pulmonary hypertension, sleep apnea, prediabetes, questionable CABG, who comes in due to palpitations. According to the patient, yesterday on 12/19/2024 around 1:00 a.m. she started experiencing palpitations while she was lying down in bed, associated with ringing sensation in her ears a headache and neck ache along with shortness of breaths. Patient notes she had similar symptoms in June 2024 when she was admitted here and treated for sinus tachycardia and discharged home on metoprolol. time she ever felt similar palpitations was at some point last year. Echocardiogram done in June of 2024 showed EF 60% with biatrial enlargement. Serial troponins during this hospitalization were <3, <3, <3 an EKG showed atrial flutter. According to the patient, she had a left heart catheterization in 2021 which was largely unremarkable at the time. On review of systems patient is complaining of fatigue, chills, shortness of breath, palpitations and nausea. Past Medical History COPD, pulmonary hypertension, sleep apnea, prediabetes, questionable CABG Past Surgical History Questionable CABG, left knee replacement, left shoulder surgery Family History: Patient reports no known family medical history. Social History Smoking: Denies Alcohol: Denies Drugs: Denies Allergies: Coded Allergies: NO KNOWN ALLERGIES (Unverified , 05/05/24) Home Meds Active Scripts Nebulizers (Medneb Compressor Nebuliz) 1 Mis Mis, MIS XX PRN, #1 Prov:SILVINA PACKER MD 09/30/24 Albuterol Sulfate (Albuterol Sulfate) 0.083 % Neb, 1 VIAL NEB Q4HPRN PRN, #50 VIAL 5 Refills Prov:SILVINA PACKER MD 09/30/24 Azithromycin (Azithromycin) 500 Mg Tab, 1 TAB PO DAILY for 5 Days, #5 TAB Prov:SILVINA PACKER MD 09/30/24 Prednisone (Prednisone) 20 Mg Tab, 20 MG PO BID for 5 Days, #10 TAB Prov:SILVINA PACKER MD 09/30/24 Albuterol Sulfate (Albuterol Sulfate Hfa) 108 Mcg/Act Aer, 108 MCG IN Q4HP PRN, #1 AER 5 Refills Prov:SILVINA PACKER MD 09/30/24 Meclizine Hcl (Meclizine Hcl) 12.5 Mg Tab, 1 TAB PO BID, #14 TAB For dizziness/nausea Prov:ETHAN PAREDES MD 07/20/24 Senna (Senokot) 8.6 Mg Tab, 1 TAB PO BID, #40 TAB Prov:ETHAN PAREDES MD 07/20/24 Furosemide (Furosemide) 40 Mg Tab, 40 MG PO BIDD, #90 MG Prov:ETHAN PAREDES MD 07/20/24 Potassium Chloride (POTASSIUM CHLORIDE CR) 10 Meq Tb, 20 MEQ PO DAILY, #30 TAB Prov:ETHAN PAREDES MD 07/20/24 Reported Medications Acetaminophen W/ Codeine (Tylenol #4 W/Codeine) 1 Tab Tb, 1 TAB PO, TAB 12/20/24 Oxycodone W/ Acetaminophen (Apap/Oxycodone) 1 Tab Tab, 1 TAB PO, TAB 12/20/24 Cholecalciferol (VITAMIN D3) 2,000 Unit Tab, 1 TAB PO DAILY, #30 TAB 5 Refills 12/20/24 Atorvastatin Calcium (Lipitor) 40 Mg Tab, 1 TAB PO DAILY, #30 TAB 5 Refills 12/20/24 Aspirin (Aspir-81) 81 Mg Tab, 1 TAB PO DAILY, #30 TAB 5 Refills 12/20/24 Gabapentin (Gabapentin) 100 Mg Cap, 100 MG PO BID for 30 Days, MG 05/05/24 Omeprazole (Gnp Omeprazole) 20 Mg Tab, 40 MG PO, TAB 05/05/24 Solifenacin Succinate (Solifenacin Succinate) 10 Mg Tab, 10 MG PO, TAB 05/05/24 Magnesium Oxide (MAGNESIUM OXIDE) 400 Mg Tab, 500 MG OR, TAB 05/05/24 Docusate Sodium (Colace) 100 Mg Cap, 1 CAP PO BID, #30 CAP 05/05/24 Methocarbamol (Methocarbamol) 500 Mg Tab, 500 MG PO for 30 Days, MG 05/05/24 Lisinopril (Lisinopril) 10 Mg Tab, 10 MG PO DAILY for 30 Days, MG 05/05/24 Metoprolol Succinate (Metoprolol Succinate Er) 25 Mg Tab, 25 MG PO DAILY for 30 Days, MG 05/05/24 Folic Acid (Folic Acid) 200 Mcg Tab 08/17/10 Current Medications Current Medications Medications (Trade) Dose Ordered Sig/Anil Route PRN Reason Start Time Stop Time Status Last Admin Acetaminophen/ Hydrocodone Bitart ([place] 5/325MG Tab) 1 tab Q4HP PRN PO MODERATE PAIN (4-6 PAIN SCALE) 12/19/24 16:15 Ondansetron HCl (Zofran) 4 mg Q4HP PRN IV NAUSEA / VOMITING 12/19/24 16:15 12/19/24 23:05 Enoxaparin Sodium (Lovenox) 40 mg DAILY SC 12/20/24 10:00 12/20/24 11:19 DC 12/20/24 11:03 Acetaminophen (Tylenol Tablet) 650 mg Q6HP PRN PO PAIN SCALE 1-3 OR TEMP>100.4 12/19/24 16:15 Nitroglycerin (Ntrostat Sublingual) 0.4 mg Q5MINP PRN SL FOR CHEST PAIN 12/19/24 16:15 Morphine Sulfate 2 mg Q30M PRN IV FOR CHEST PAIN 12/19/24 16:15 12/19/24 23:01 Metoprolol Tartrate (Lopressor Tablet) 25 mg BID PO 12/19/24 16:30 12/20/24 11:03 Aspirin 81 mg DAILY PO 12/20/24 10:00 12/20/24 11:03 Atorvastatin Calcium (Lipitor) 40 mg HS PO 12/19/24 22:00 12/19/24 23:00 Metoprolol Tartrate (Lopressor) 2.5 mg Q6HPRN PRN IV HEART RATE GREATER THAN 140 12/19/24 16:30 Docusate Sodium (Colace Capsule) 100 mg BIDPRN PRN PO FOR CONSTIPATION 12/20/24 01:00 Docusate Sodium (Colace Capsule) 100 mg BID PO 12/20/24 22:00 Enoxaparin Sodium (Lovenox) 150 mg Q12HR SC 12/20/24 22:00 UNV Review of Systems Patient seen and examined at bedside. Patient is alert and oriented to time, place person and responding to all questions. General: Fatigue, chills Eyes: No Pain, No Vision change, No Conjunctivae inflammation, No Eyelid inflammation, No Other, No Redness ENT: No Ear pain, No Ear discharge, No Nose pain, No Nose discharge, No Nose congestion, No Mouth pain, No Mouth swelling, No Throat pain, No Throat swelling, No Other Cardiovascular: No Chest Pain, Palpitations, No Orthopnea, No Paroxysmal No Dyspnea, No Edema, No Lt Headedness, No Other Respiratory: No Cough, No Dry, No Shortness of breath, SOB with exertion, No Wheezing, No Hemoptysis, No Pleuritic Pain, No Sputum, No Other Gastrointestinal: Nausea, No Vomiting, No Abdominal Pain, No Diarrhea, No Constipation, No Melena, No Hematochezia, No Other Genitourinary: No Dysuria, No Frequency, No Incontinence, No Hematuria, No Retention, No Other Musculoskeletal: No other, No neck pain, No shoulder pain, No arm pain, No back pain, No hand pain, No leg pain, No foot pain Skin: No Rash, No Lesions, No Jaundice, No Bruising, No Other Vital Signs Vital Signs Date Time Temp Pulse Resp B/P (MAP) Pulse Ox O2 Delivery O2 Flow Rate FiO2 12/20/24 11:03 106 141/92 12/20/24 09:00 98.5 19 98 98.5 12/20/24 08:00 Room Air* 0 21 Physical Exam General Appearance: Cooperative. Well developed. Well nourished. NAD Head Exam: Normal inspection Neck Exam: Normal inspection. Non-tender. Normal alignment Pulmonary/Respiratory: Chest non-tender. Decreased bilateral breath sounds, no crackles, no wheezing. Cardiovascular/Chest: Regular rate, tachycardia. No murmurs. No JVD. Peripheral Pulses: 2+ Radial (R). 2+ Radial (L). 2+ Pedal (R). 2+ Pedal (L) Abdominal Exam: Normal bowel sounds. Soft. normal abdomen, no visible veins, Nontender. No hepatospenomegaly. No masses Lower extremities: Negative lower extremity edema Neuro/Mental Status: A&O x4. Coherent. Thoughts/Psych: Normal thought pattern. Appropriate mood and affect. Good judgement and insight Skin Exam: Normal inspection. Normal color. Warm. Dry Labs/Diagnostic Data Labs Test 12/20/24 05:23 12/19/24 13:06 12/19/24 12:54 Range/Units White Blood Count 7.6 4.4-10.8 10^3/uL Red Blood Count 4.71 4.0-5.20 10^6/uL Hemoglobin 12.9 12.2-16.2 g/dL Hematocrit 38.8 36.0-46.0 % Mean Corpuscular Volume 82.4 80.0-100.0 fL Mean Corpuscular Hemoglobin 27.4 L 28.0-32.0 pg Mean Corpuscular Hemoglobin Concent 33.3 32.0-36.0 g/dL Red Cell Distribution Width 16.4 H 11.8-14.3 % Platelet Count 238 140-450 10^3/uL Mean Platelet Volume 8.8 6.9-10.8 fL Neutrophils (%) (Auto) 57.4 37.0-80.0 % Lymphocytes (%) (Auto) 29.9 10.0-50.0 % Monocytes (%) (Auto) 8.6 0.0-12.0 % Eosinophils (%) (Auto) 3.5 0.0-7.0 % Basophils (%) (Auto) 0.6 0.0-2.0 % Neutrophils # (Auto) 4.4 1.6-8.6 10 ^3/uL Lymphocytes # (Auto) 2.3 0.4-5.4 10 ^3/uL Monocytes # (Auto) 0.7 0-1.3 10 ^3/uL Eosinophils # (Auto) 0.3 0-0.8 10 ^3/uL Basophils # (Auto) 0 0-0.2 10 ^3/uL Nucleated Red Blood Cells 0.2 % Sodium Level 138 136-145 mmol/L Potassium Level 4.6 3.5-5.1 mmol/L Chloride Level 103 98-107 mmol/L Carbon Dioxide Level 26 20-31 mmol/L Anion Gap 9 5-15 Blood Urea Nitrogen 19 9-23 mg/dL Creatinine 0.88 0.550-1.02 mg/dL Glomerular Filtration Rate Calc 74 >90 mL/min BUN/Creatinine Ratio 21.6 H 10.0-20.0 Serum Glucose 107 H 74-106 mg/dL Calcium Level 10.4 8.7-10.4 mg/dL Total Bilirubin 1.0 0.2-1.0 mg/dL Aspartate Amino Transferase (AST) 19 <34 U/L Alanine Aminotransferase (ALT) 23 7-40 U/L Alkaline Phosphatase 109 46-116 U/L Total Protein 6.7 5.7-8.2 g/dL Albumin 4.0 3.2-4.8 g/dL Troponin I High Sensitivity 3 L </=34 ng/L Urine Color Colorless Yellow Urine Clarity Clear Clear Urine pH 5.0 5.0-9.0 Urine Specific [place] 1.003 1.001-1.035 Urine Protein Negative Negative Urine Ketones Negative Negative Urine Blood Negative Negative /uL Urine Nitrite Negative Negative Urine Bilirubin Negative Negative Urine Urobilinogen Normal Negative mg/dL Urine Leukocyte Esterase Negative Negative /uL Urine RBC None seen 0 - 4 /hpf Urine Microscopic WBC 1 0-5 /HPF Urine Squamous Epithelial Cells Few <5 /hpf Urine Bacteria Mod H None Seen /hpf Urine Glucose Normal Normal mg/dL Assessment Atrial flutter Pulmonary hypertension COPD Sleep apnea Prediabetes Prolonged QTC 544 Plan: Amiodarone drip Therapeutic Lovenox EKGs from Jun 2024 show sinus rhythm scheduled for OLEG and cardioversion tomorrow on 12/21/24 Monitor blood pressure Avoid QT prolonging drugs Rest of the plan as per course of hospitalization Thank you so much for the opportunity to consult on your patient. Cardiology team will follow the patient. In case of any questions or concerns please feel free to reach out. Plan discussed with Dr. Kaminski Plan discussed with: Patient, Other (RN) Visit Coding Cardiology RES Date of Service: Dec 20, 2024 Billing Provider: JES KAMINSKI Sr., MD Cardiology Common Codes: [id number] INP/OBS CARE (High) YUSEF ISSA RESIDENT Dec 20, 2024 12:26
[2024-12-20] MEDS: DOCUSATE SOD 100 MG CAP PO PRN (13:50)
[2024-12-20] MEDS: AMIODARONE 360mg/200mL PREMIX 200 ML IV ONE (13:51)
--- NOTE | 2024-12-20 13:56 | ECG ---
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
--- NOTE | 2024-12-20 16:26 | DVHPN2 ---
Subjective Overnight events noted. Patient is all the questions were answered. Patient is currently on IV amiodarone drip. Changes from previous H/P or p: No Changes Objective Vitals Vital Signs Date Time Temp Pulse Resp B/P (MAP) Pulse Ox O2 Delivery O2 Flow Rate FiO2 12/20/24 13:00 98.3 98 19 110/83 (92) 98 98.3 12/20/24 08:00 Room Air* 0 21 Intake/Output Intake and Output 12/20/24 07:00 Intake Total 483.32 ml Output Total 475 ml Balance 8.32 ml Intake Oral 350 ml IV Total 133.32 ml Output Urine Total 475 ml Exam HEENT pupils are reactive Neck is supple CV is S1-S2 irregularly irregular rate and rhythm with a rate between 110 to 120s Respiratory bilateral clear GI positive bowel sound Extremity no edema RN INFUSION no motor deficit Medications Current Medications Medications Dose Ordered Sig/Anil Route Start Time Stop Time Status Last Admin Dose Admin Acetaminophen/ Hydrocodone Bitart 1 tab Q4HP PRN PO 12/19/24 16:15 Ondansetron HCl 4 mg Q4HP PRN IV 12/19/24 16:15 12/20/24 13:51 4 MG Acetaminophen 650 mg Q6HP PRN PO 12/19/24 16:15 Nitroglycerin 0.4 mg Q5MINP PRN SL 12/19/24 16:15 Morphine Sulfate 2 mg Q30M PRN IV 12/19/24 16:15 12/19/24 23:01 2 MG Metoprolol Tartrate 25 mg BID PO 12/19/24 16:30 12/20/24 11:03 25 MG Aspirin 81 mg DAILY PO 12/20/24 10:00 12/20/24 11:03 81 MG Atorvastatin Calcium 40 mg HS PO 12/19/24 22:00 12/19/24 23:00 40 MG Metoprolol Tartrate 2.5 mg Q6HPRN PRN IV 12/19/24 16:30 Docusate Sodium 100 mg BIDPRN PRN PO 12/20/24 01:00 12/20/24 13:50 100 MG Docusate Sodium 100 mg BID PO 12/20/24 22:00 Enoxaparin Sodium 150 mg Q12HR SC 12/20/24 22:00 UNV Enoxaparin Sodium 150 mg Q12HR SC 12/20/24 22:00 Loratadine 10 mg DAILY PO 12/21/24 10:00 Laboratory Results Laboratory Tests 12/20/24 05:23 Chemistry Test 12/20/24 05:23 Albumin 4.0 g/dL (3.2-4.8) Calcium Level 10.4 mg/dL (8.7-10.4) Total Protein 6.7 g/dL (5.7-8.2) LFT Test 12/20/24 05:23 Alanine Aminotransferase (ALT) 23 U/L (7-40) Alkaline Phosphatase 109 U/L (46-116) Aspartate Amino Transferase (AST) 19 U/L (<34) Total Bilirubin 1.0 mg/dL (0.2-1.0) Urinalysis Test 12/19/24 12:54 Urine Color Colorless (Yellow) Urine Clarity Clear (Clear) Urine pH 5.0 (5.0-9.0) Urine Specific [place] 1.003 (1.001-1.035) Urine Protein Negative (Negative) Urine Ketones Negative (Negative) Urine Blood Negative /uL (Negative) Urine Nitrite Negative (Negative) Urine Bilirubin Negative (Negative) Urine Urobilinogen Normal mg/dL (Negative) Urine Leukocyte Esterase Negative /uL (Negative) Urine RBC None seen /hpf (0 - 4) Urine Microscopic WBC 1 /HPF (0-5) Urine Squamous Epithelial Cells Few /hpf (<5) Urine Bacteria Mod /hpf (None Seen) H Urine Glucose Normal mg/dL (Normal) Assessment/Plan Assessment/Plan 63-year-old female with a known history of AFib, hypertension, pulmonary hypertension, previous history of open heart surgery presented to the hospital with chest tightness palpitations and shortness of breaths found to have 1. AFib with RVR 2. Chest pain rule out [place] 3. Previous history of chronic AFib currently on aspirin and beta estiven 4. Pulmonary hypertension 5. COPD 6. Hypertension 7. Dyslipidemia 8. Previous history of open heart surgery for some septal defect -IV amiodarone drip aspirin statin beta estiven, 2D echo cardiology consultation DVT prophylaxis with the Lovenox Plan discussed with: Patient My Orders Orders - TOMAS QUEVEDO MD Procedure Category Date Status Time Loratadine Tablet PHA 12/21/24 In Process (Claritin Tablet) 10:00 Date of Service: Dec 20, 2024 Billing Provider: TOMAS QUEVEDO MD Common Visit Codes: NOT BILLABLE TOMAS QUEVEDO MD Dec 20, 2024 16:26
[2024-12-20] MEDS ORDERED: AMIODARONE 360mg/200mL PREMIX 200 ML IV SCH (17:30)
[2024-12-20] MEDS: AMIODARONE 360mg/200mL PREMIX 200 ML IV SCH (20:25)
[2024-12-20] MEDS ORDERED: ENOXAPARIN SOD 100 MG/1 ML SYRINGE SC SCH (22:00)
[2024-12-20] MEDS: ENOXAPARIN SOD 150 MG/1 ML SYRINGE SC SCH (23:12)
[2024-12-20] MEDS: DOCUSATE SOD 100 MG CAP PO SCH (23:12)
[2024-12-21] VITALS (13 sets, daily range): BP systolic 101–140; BP diastolic 66–91; PULSE 100–116; RESP 14–21; TEMP 96–97.9; O2SAT 93–100
[2024-12-21 06:14] LABS: Basophils # (auto) 0.1 10 ^3/uL (0-0.2); Basophils % (auto) 0.7 % (0.0-2.0); Eosinophils # (auto) 0.3 10 ^3/uL (0-0.8); Hematocrit 41.6 % (36.0-46.0); Hemoglobin 13.5 g/dL (12.2-16.2); Lymphocytes # (auto) 2.3 10 ^3/uL (0.4-5.4); Lymphocytes % (auto) 28.2 % (10.0-50.0); Mean Corpuscular Hgb Conc. 32.4 g/dL (32.0-36.0); Mean Corpuscular Volume 83.3 fL (80.0-100.0); Monocytes # (auto) 0.6 10 ^3/uL (0-1.3); Monocytes % (auto) 7.5 % (0.0-12.0); Neutrophils # (auto) 4.8 10 ^3/uL (1.6-8.6); Neutrophils % (auto) 59.6 % (37.0-80.0); Platelet Count (auto) 245 10^3/uL (140-450); Red Cell Distribution Width 16.4 % (11.8-14.3)
[2024-12-21 06:24] LABS: INR 1.05 (0.9-1.15); Partial Thromboplastin Time 30.4 SEC (24.5-34.5); Prothrombin Time 11.1 sec (9.3-11.8)
[2024-12-21 06:27] LABS: Chloride 103 mmol/L (98-107); Potassium 4.5 mmol/L (3.5-5.1); Sodium 140 mmol/L (136-145)
[2024-12-21 06:28] LABS: Anion Gap 8 (5-15); Carbon Dioxide 29 mmol/L (20-31)
[2024-12-21 06:33] LABS: Blood Urea Nitrogen 15 mg/dL (9-23); Glucose 96 mg/dL (74-106)
[2024-12-21 06:34] LABS: Calcium 10.9 mg/dL (8.7-10.4)
--- NOTE | 2024-12-21 07:39 | DVH ---
AP portable chest CLINICAL INDICATION: Pre-op FINDINGS: Heart size slightly prominent. No infiltrates or effusions. Sternotomy sutures overlie the midline. IMPRESSION: 1. No acute cardiopulmonary pathology
[2024-12-21] MEDS: LORATADINE 10 MG TAB PO SCH (10:00)
[2024-12-21] MEDS: MIDAZOLAM HCL 2MG/2ML 2ml VIAL (1mg/ml) IV ONE (11:15)
[2024-12-21] MEDS: LIDOCAINE VISCOUS 2% 15ML UD PO ONE (11:15)
[2024-12-21] MEDS: fentaNYL CITRATE 100 MCG/2 ML VL IV ONE (11:15)
--- NOTE | 2024-12-21 16:24 | DVHPN2 ---
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 Changes from previous H/P or p: No Changes Objective Vitals Vital Signs Date Time Temp Pulse Resp B/P (MAP) Pulse Ox O2 Delivery O2 Flow Rate FiO2 12/21/24 13:35 104 16 119/87 (98) 100 12/21/24 08:44 97.7 97.7 12/21/24 08:00 Room Air* 0 21 Intake/Output Intake and Output 12/21/24 07:00 Intake Total 1105 ml Balance 1105 ml Intake Oral 730 ml IV Total 375 ml # Voids 6 Medications Current Medications Medications Dose Ordered Sig/Anil Route Start Time Stop Time Status Last Admin Dose Admin Acetaminophen/ Hydrocodone Bitart 1 tab Q4HP PRN PO 12/19/24 16:15 Ondansetron HCl 4 mg Q4HP PRN IV 12/19/24 16:15 12/20/24 13:51 4 MG Acetaminophen 650 mg Q6HP PRN PO 12/19/24 16:15 Nitroglycerin 0.4 mg Q5MINP PRN SL 12/19/24 16:15 Morphine Sulfate 2 mg Q30M PRN IV 12/19/24 16:15 12/19/24 23:01 2 MG Metoprolol Tartrate 25 mg BID PO 12/19/24 16:30 12/20/24 23:12 25 MG Aspirin 81 mg DAILY PO 12/20/24 10:00 12/20/24 11:03 81 MG Atorvastatin Calcium 40 mg HS PO 12/19/24 22:00 12/20/24 23:12 40 MG Metoprolol Tartrate 2.5 mg Q6HPRN PRN IV 12/19/24 16:30 Docusate Sodium 100 mg BIDPRN PRN PO 12/20/24 01:00 12/20/24 13:50 100 MG Docusate Sodium 100 mg BID PO 12/20/24 22:00 12/20/24 23:12 100 MG Enoxaparin Sodium 150 mg Q12HR SC 12/20/24 22:00 UNV Enoxaparin Sodium 150 mg Q12HR SC 12/20/24 22:00 12/20/24 23:12 150 MG Loratadine 10 mg DAILY PO 12/21/24 10:00 Laboratory Results Laboratory Tests 12/21/24 05:30 Chemistry Test 12/21/24 05:30 Calcium Level 10.9 mg/dL (8.7-10.4) H Coagulation Test 12/21/24 05:30 Prothrombin Time 11.1 sec (9.3-11.8) Prothrombin Time INR 1.05 (0.9-1.15) Activated Partial Thromboplast Time 30.4 SEC (24.5-34.5) Urinalysis Test 12/19/24 12:54 Urine Color Colorless (Yellow) Urine Clarity Clear (Clear) Urine pH 5.0 (5.0-9.0) Urine Specific [place] 1.003 (1.001-1.035) Urine Protein Negative (Negative) Urine Ketones Negative (Negative) Urine Blood Negative /uL (Negative) Urine Nitrite Negative (Negative) Urine Bilirubin Negative (Negative) Urine Urobilinogen Normal mg/dL (Negative) Urine Leukocyte Esterase Negative /uL (Negative) Urine RBC None seen /hpf (0 - 4) Urine Microscopic WBC 1 /HPF (0-5) Urine Squamous Epithelial Cells Few /hpf (<5) Urine Bacteria Mod /hpf (None Seen) H Urine Glucose Normal mg/dL (Normal) Assessment/Plan Assessment/Plan 63-year-old female with a known history of AFib, hypertension, pulmonary hypertension, previous history of open heart surgery presented to the hospital with chest tightness palpitations and shortness of breaths found to have 1. Junctional tachycardia, no evidence of any AFib with a RVR as per Cardiology, janette was done patient needs cardiac ablation biatrial active 2. Chest pain rule out [place] 3. Previous history of chronic AFib currently on aspirin and beta estiven 4. Pulmonary hypertension 5. COPD 6. Hypertension 7. Dyslipidemia 8. Previous history of open heart surgery for some septal defect -amiodarone p.o. aspirin statin beta estiven, patient is currently getting JANETTE by Cardiology -discontinue therapeutic Lovenox, Plan discussed with: Other Date of Service: Dec 21, 2024 Billing Provider: TOMAS QUEVEDO MD Common Visit Codes: NOT BILLABLE TOMAS QUEVEDO MD Dec 21, 2024 16:24
--- NOTE | 2024-12-21 16:51 | DVHPNRES ---
Progress Note Date Seen: Dec 21, 2024 Resident Creating Document: YUSEF ISSA RESIDENT Medical Necessity Reason Pt with a Central, PICC or Fol: No Subjective Review of Systems Patient seen and examined at bedside. Patient is alert and oriented to time, place person and responding to all questions. Patient notes improvement in symptoms however continues to feel palpitations. Objective vital signs Vital Sign Date Time Temp Pulse Resp B/P (MAP) Pulse Ox O2 Delivery O2 Flow Rate FiO2 12/21/24 13:35 104 16 119/87 (98) 100 12/21/24 08:44 97.7 97.7 12/21/24 08:00 Room Air* 0 21 Total Intake and Output 12/20/24 12/20/24 12/21/24 15:00 23:00 07:00 Intake Total 730 ml 375 ml Balance 730 ml 375 ml medications Current Medications Medications Dose Ordered Sig/Anil Route Start Time Stop Time Status Last Admin Dose Admin Acetaminophen/ Hydrocodone Bitart 1 tab Q4HP PRN PO 12/19/24 16:15 Ondansetron HCl 4 mg Q4HP PRN IV 12/19/24 16:15 12/20/24 13:51 4 MG Acetaminophen 650 mg Q6HP PRN PO 12/19/24 16:15 Nitroglycerin 0.4 mg Q5MINP PRN SL 12/19/24 16:15 Morphine Sulfate 2 mg Q30M PRN IV 12/19/24 16:15 12/19/24 23:01 2 MG Metoprolol Tartrate 25 mg BID PO 12/19/24 16:30 12/20/24 23:12 25 MG Aspirin 81 mg DAILY PO 12/20/24 10:00 12/20/24 11:03 81 MG Atorvastatin Calcium 40 mg HS PO 12/19/24 22:00 12/20/24 23:12 40 MG Metoprolol Tartrate 2.5 mg Q6HPRN PRN IV 12/19/24 16:30 Docusate Sodium 100 mg BIDPRN PRN PO 12/20/24 01:00 12/20/24 13:50 100 MG Docusate Sodium 100 mg BID PO 12/20/24 22:00 12/20/24 23:12 100 MG Enoxaparin Sodium 150 mg Q12HR SC 12/20/24 22:00 UNV Loratadine 10 mg DAILY PO 12/21/24 10:00 Examination General Appearance: Cooperative. Well developed. Well nourished. NAD Head Exam: Normal inspection Neck Exam: Normal inspection. Non-tender. Normal alignment Pulmonary/Respiratory: Chest non-tender. Decreased bilateral breath sounds, no crackles, no wheezing. Cardiovascular/Chest: Regular rate, tachycardia. No murmurs. No JVD. Peripheral Pulses: 2+ Radial (R). 2+ Radial (L). 2+ Pedal (R). 2+ Pedal (L) Abdominal Exam: Normal bowel sounds. Soft. normal abdomen, no visible veins, Nontender. No hepatospenomegaly. No masses Lower extremities: Negative lower extremity edema Neuro/Mental Status: A&O x4. Coherent. Thoughts/Psych: Normal thought pattern. Appropriate mood and affect. Good judgement and insight Skin Exam: Normal inspection. Normal color. Warm. Dry laboratory and microbiology Laboratory Tests 12/21/24 05:30 Test 12/21/24 05:30 Range/Units Serum Glucose 96 74-106 mg/dL Labs and/or images reviewed: Labs reviewed by me, Image(s) reviewed by me Problem List/Assessment/Plan Problem List/Assessment/Plan Junctional tachycardia (initially suspected atrial flutter) Pulmonary hypertension COPD Sleep apnea Prediabetes Prolonged QTC 544 Plan: EP consult for evaluation and possible ablation continue Amiodarone drip discontinued Therapeutic Lovenox Monitor blood pressure Avoid QT prolonging drugs Rest of the plan as per course of hospitalization Thank you so much for the opportunity to consult on your patient. Cardiology team will sign off. In case of any questions or concerns please feel free to reach out. Plan discussed with Dr. Kaminski Plan discussed with: Patient, Spouse, Other (RN) Visit Coding Cardiology RES Date of Service: Dec 21, 2024 Billing Provider: JES KAMINSKI Sr., MD Cardiology Common Codes: [id number] Dec 21, 2024 16:51
[2024-12-21] MEDS: LACTULOSE 20Gm/30ML SOLN PO ONE (18:36)
[2024-12-22] VITALS (8 sets, daily range): BP systolic 97–135; BP diastolic 55–86; PULSE 92–129; RESP 18–20; TEMP 96.8–98.5; O2SAT 97–100
[2024-12-22] MEDS: AMIODARONE 360mg/200mL PREMIX 200 ML IV SCH (11:04)
--- NOTE | 2024-12-22 15:03 | DVHPN2 ---
Progress Note - Dictate Date Seen: Dec 22, 2024 Medical Necessity Reason Pt with a Central, PICC or Fol: No Subjective Comfortable in bed and no complaints of palpitations or chest pain. However her heart rate is still in the low 100s atrial fibrillation on amiodarone drip. vital signs Vital Sign Date Time Temp Pulse Resp B/P (MAP) Pulse Ox O2 Delivery O2 Flow Rate FiO2 12/22/24 12:32 97.7 92 18 122/63 (82) 99 97.7 12/22/24 08:00 Room Air* 0 21 Total Intake and Output 12/21/24 12/21/24 12/22/24 14:59 22:59 06:59 Intake Total 33.32 ml 350 ml 600 ml Balance 33.32 ml 350 ml 600 ml medications Current Medications Medications Dose Ordered Sig/Anil Route Start Time Stop Time Status Last Admin Dose Admin Acetaminophen/ Hydrocodone Bitart 1 tab Q4HP PRN PO 12/19/24 16:15 Ondansetron HCl 4 mg Q4HP PRN IV 12/19/24 16:15 12/20/24 13:51 4 MG Acetaminophen 650 mg Q6HP PRN PO 12/19/24 16:15 Nitroglycerin 0.4 mg Q5MINP PRN SL 12/19/24 16:15 Morphine Sulfate 2 mg Q30M PRN IV 12/19/24 16:15 12/19/24 23:01 2 MG Metoprolol Tartrate 25 mg BID PO 12/19/24 16:30 12/22/24 08:24 25 MG Aspirin 81 mg DAILY PO 12/20/24 10:00 12/22/24 08:22 81 MG Atorvastatin Calcium 40 mg HS PO 12/19/24 22:00 12/21/24 21:05 40 MG Metoprolol Tartrate 2.5 mg Q6HPRN PRN IV 12/19/24 16:30 Docusate Sodium 100 mg BID PO 12/20/24 22:00 12/22/24 08:22 100 MG Enoxaparin Sodium 150 mg Q12HR SC 12/20/24 22:00 UNV Loratadine 10 mg DAILY PO 12/21/24 10:00 12/22/24 08:23 10 MG objective And a day ago and x3. HEENT neck supple no JVD. Heart irregular rate and rhythm tachycardia. Abdomen obese positive bowel sounds. Extremities no edema. Lungs fair hormone with the wheezing. laboratory and microbiology Laboratory Tests 12/21/24 05:30 Test 12/21/24 05:30 Range/Units Serum Glucose 96 74-106 mg/dL Assessment/Plan I will increase amiodarone drip to 1 milligram/hours from 0.5 mg given heart rate still in the low 100s. We will give one dose of IV digoxin. I will increase her metoprolol to 3 times a day. Her Jesu patient takes 50 mg twice a day at home. Currently she is only on 25 mg twice a day. Otherwise continue Unasyn supportive care and treatment. Further clinical management for clinical course. Discussed with the patient and nurse at bedside regarding care plan. Problems(with codes): (1) Atrial fibrillation with RVR (2) Palpitations (3) Fall at home Plan discussed with: Patient ETHAN PAREDES MD Dec 22, 2024 15:03
[2024-12-22] MEDS: DIGOXIN (250MCG/ML) 2 ML AMPULE IV ONE (15:14)
--- NOTE | 2024-12-22 19:51 | DVHINCON2 ---
Date of service: Dec 22, 2024 Reason for Consultation Atrial fibrillation with RVR History of Present Illness The patient is a 64-year-old female, who initially presented to the emergency department with complaints of palpitations and substernal chest pain. She has a reported past medical history of hypertension, atrial fibrillation, hyperlipidemia, and chronic pain syndrome. Initial troponin was<3 with a repeat troponin remaining at 3, chest x-ray showed no acute cardiopulmonary process. The initial EKG showed atrial flutter with a ventricular rate of 144 bpm and prolonged QTC of [address] elevation and lateral leads. A subsequent EKG revealed sinus tachycardia with the rate of 145 bpm, super ventricular rhythm, borderline ST depression in anterolateral leads, and QTC of 494 ms. Echocardiogram done in June of 2024 showed EF 60% with biatrial enlargement. Recent labs revealed calcium 10.9, potassium 4.5 sodium 140. The patient is currently taking metoprolol 25 mg twice daily and aspirin. Despite this, she remains tachycardic with heart rate persistently greater than 100 bpm. Electrophysiology service was consulted for evaluation for potential ablation. Given her history and current medical medication regiment, the treatment plan includes optimizing rate control by titrating metoprolol to a higher dose if tolerated. Alternatives such as diltiazem or digoxin should be considered, based on tolerance. Aspirin alone is insufficient for her stroke prevention and atrial fibrillation. Her CHADS-VASC score suggest anticoagulation is indicated, and initiation of DOAC such as apixaban is recommended. She remains on amiodarone infusion. The patient was previously scheduled for OLEG with cardioversion yesterday; however, the procedure was canceled, and there is no clear documentation explaining the reason. A detailed discussion was held with the patient, who expressed interest in proceeding with OLEG and cardioversion prior to considering catheter ablation. At present, she denies any current chest pain, shortness of breath, dizziness, or syncope. She does report shortness of breath on exertion associated with palpitations. Past Medical History Chronic pain syndrome Atrial fibrillation Hyperlipemia Hypertension Family History: Patient reports no known family medical history. Allergies: Coded Allergies: NO KNOWN ALLERGIES (Unverified , 05/05/24) Home Meds Active Scripts Nebulizers (Medneb Compressor Nebuliz) 1 Mis Mis, MIS XX PRN, #1 Prov:SILVINA PACKER MD 09/30/24 Albuterol Sulfate (Albuterol Sulfate) 0.083 % Neb, 1 VIAL NEB Q4HPRN PRN, #50 VIAL 5 Refills Prov:SILVINA PACKER MD 09/30/24 Azithromycin (Azithromycin) 500 Mg Tab, 1 TAB PO DAILY for 5 Days, #5 TAB Prov:SILVINA PACKER MD 09/30/24 Prednisone (Prednisone) 20 Mg Tab, 20 MG PO BID for 5 Days, #10 TAB Prov:SILVINA PACKER MD 09/30/24 Albuterol Sulfate (Albuterol Sulfate Hfa) 108 Mcg/Act Aer, 108 MCG IN Q4HP PRN, #1 AER 5 Refills Prov:SILVINA PACKER MD 09/30/24 Meclizine Hcl (Meclizine Hcl) 12.5 Mg Tab, 1 TAB PO BID, #14 TAB For dizziness/nausea Prov:ETHAN PAREDES MD 07/20/24 Senna (Senokot) 8.6 Mg Tab, 1 TAB PO BID, #40 TAB Prov:ETHAN PAREDES MD 07/20/24 Furosemide (Furosemide) 40 Mg Tab, 40 MG PO BIDD, #90 MG Prov:ETHAN PAREDES MD 07/20/24 Potassium Chloride (POTASSIUM CHLORIDE CR) 10 Meq Tb, 20 MEQ PO DAILY, #30 TAB Prov:ETHAN PAREDES MD 07/20/24 Reported Medications Acetaminophen W/ Codeine (Tylenol #4 W/Codeine) 1 Tab Tb, 1 TAB PO, TAB 12/20/24 Oxycodone W/ Acetaminophen (Apap/Oxycodone) 1 Tab Tab, 1 TAB PO, TAB 12/20/24 Cholecalciferol (VITAMIN D3) 2,000 Unit Tab, 1 TAB PO DAILY, #30 TAB 5 Refills 12/20/24 Atorvastatin Calcium (Lipitor) 40 Mg Tab, 1 TAB PO DAILY, #30 TAB 5 Refills 12/20/24 Aspirin (Aspir-81) 81 Mg Tab, 1 TAB PO DAILY, #30 TAB 5 Refills 12/20/24 Gabapentin (Gabapentin) 100 Mg Cap, 100 MG PO BID for 30 Days, MG 05/05/24 Omeprazole (Gnp Omeprazole) 20 Mg Tab, 40 MG PO, TAB 05/05/24 Solifenacin Succinate (Solifenacin Succinate) 10 Mg Tab, 10 MG PO, TAB 05/05/24 Magnesium Oxide (MAGNESIUM OXIDE) 400 Mg Tab, 500 MG OR, TAB 05/05/24 Docusate Sodium (Colace) 100 Mg Cap, 1 CAP PO BID, #30 CAP 05/05/24 Methocarbamol (Methocarbamol) 500 Mg Tab, 500 MG PO for 30 Days, MG 05/05/24 Lisinopril (Lisinopril) 10 Mg Tab, 10 MG PO DAILY for 30 Days, MG 05/05/24 Metoprolol Succinate (Metoprolol Succinate Er) 25 Mg Tab, 25 MG PO DAILY for 30 Days, MG 05/05/24 Folic Acid (Folic Acid) 200 Mcg Tab 08/17/10 Current Medications Current Medications Medications (Trade) Dose Ordered Sig/Anil Route PRN Reason Start Time Stop Time Status Last Admin Metoprolol Tartrate (Lopressor Tablet) 25 mg TID PO 12/22/24 22:00 Review of Systems A 14-point review of systems is negative unless otherwise noted above Vital Signs Vital Signs Date Time Temp Pulse Resp B/P (MAP) Pulse Ox O2 Delivery O2 Flow Rate FiO2 12/22/24 16:30 98.5 102 18 131/86 (101) 98 98.5 12/22/24 08:00 Room Air* 0 21 Physical Exam Heart: S1 and S2 present. The patient is in atrial fibrillation. Lungs: Clear to auscultation. Abdomen: Benign. Extremities: Distal pulses palpable, 2+. No evidence for peripheral edema Labs/Diagnostic Data Labs Test 12/21/24 05:30 12/20/24 05:23 12/19/24 13:06 12/19/24 12:54 Range/Units White Blood Count 8.0 4.4-10.8 10^3/uL Red Blood Count 5.00 4.0-5.20 10^6/uL Hemoglobin 13.5 12.2-16.2 g/dL Hematocrit 41.6 36.0-46.0 % Mean Corpuscular Volume 83.3 80.0-100.0 fL Mean Corpuscular Hemoglobin 27.0 L 28.0-32.0 pg Mean Corpuscular Hemoglobin Concent 32.4 32.0-36.0 g/dL Red Cell Distribution Width 16.4 H 11.8-14.3 % Platelet Count 245 140-450 10^3/uL Mean Platelet Volume 9.3 6.9-10.8 fL Neutrophils (%) (Auto) 59.6 37.0-80.0 % Lymphocytes (%) (Auto) 28.2 10.0-50.0 % Monocytes (%) (Auto) 7.5 0.0-12.0 % Eosinophils (%) (Auto) 4.0 0.0-7.0 % Basophils (%) (Auto) 0.7 0.0-2.0 % Neutrophils # (Auto) 4.8 1.6-8.6 10 ^3/uL Lymphocytes # (Auto) 2.3 0.4-5.4 10 ^3/uL Monocytes # (Auto) 0.6 0-1.3 10 ^3/uL Eosinophils # (Auto) 0.3 0-0.8 10 ^3/uL Basophils # (Auto) 0.1 0-0.2 10 ^3/uL Nucleated Red Blood Cells 0.0 % Prothrombin Time 11.1 9.3-11.8 sec Prothrombin Time INR 1.05 0.9-1.15 Activated Partial Thromboplast Time 30.4 24.5-34.5 SEC Sodium Level 140 136-145 mmol/L Potassium Level 4.5 3.5-5.1 mmol/L Chloride Level 103 98-107 mmol/L Carbon Dioxide Level 29 20-31 mmol/L Anion Gap 8 5-15 Blood Urea Nitrogen 15 9-23 mg/dL Creatinine 0.88 0.550-1.02 mg/dL Glomerular Filtration Rate Calc 74 >90 mL/min BUN/Creatinine Ratio 17.0 10.0-20.0 Serum Glucose 96 74-106 mg/dL Calcium Level 10.9 H 8.7-10.4 mg/dL Total Bilirubin 1.0 0.2-1.0 mg/dL Aspartate Amino Transferase (AST) 19 <34 U/L Alanine Aminotransferase (ALT) 23 7-40 U/L Alkaline Phosphatase 109 46-116 U/L Total Protein 6.7 5.7-8.2 g/dL Albumin 4.0 3.2-4.8 g/dL Troponin I High Sensitivity 3 L </=34 ng/L Urine Color Colorless Yellow Urine Clarity Clear Clear Urine pH 5.0 5.0-9.0 Urine Specific [place] 1.003 1.001-1.035 Urine Protein Negative Negative Urine Ketones Negative Negative Urine Blood Negative Negative /uL Urine Nitrite Negative Negative Urine Bilirubin Negative Negative Urine Urobilinogen Normal Negative mg/dL Urine Leukocyte Esterase Negative Negative /uL Urine RBC None seen 0 - 4 /hpf Urine Microscopic WBC 1 0-5 /HPF Urine Squamous Epithelial Cells Few <5 /hpf Urine Bacteria Mod H None Seen /hpf Urine Glucose Normal Normal mg/dL Assessment Atrial fibrillation with rapid ventricular response Pulmonary hypertension Chronic pain syndrome Prolonged QTC (544) Hyperlipidemia Hypertension Sleep apnea Prediabetes COPD Plan/Recommendation Recommend OLEG/CV on Wednesday Proceed with close rate and rhythm surveillance Proceed with close hemodynamic surveillance Proceed with optimized blood pressure control Transfuse to sustain HGB levels above 7.0 Sustain Magnesium level greater than 2.0 Sustain Potassium level greater than 4.0 Follow up renal function and electrolytes Avoid QT prolonging medications Recommend Metoprolol Tartrate 50mg BID; Eliquis 5mg BID Management in Telemetry Will proceed to follow from a cardiac perspective Further recommendations per clinical progression All available labs, EKGs, and images were personally reviewed Patient's status, findings, and plan of care was discussed and reviewed with supervising physician Dr. Garza, who is in agreement with current plan of care. Plan of care discussed with and agreed upon by patient/Primary RN. Prognosis: Guarded Thank you for allowing me to participate in the care of this patient. Further recommendations will depend on clinical progression, hospitalist, and other consultants. Will continue to follow with Primary. If you have any questions, please do not hesitate to contact me. A total of 75 minutes was spent reviewing the patient record, examining the patient, making a diagnostic and therapeutic plan, discussing this plan with medical personnel, following up on diagnostic studies and following the patient for clinical stability excluding any and all procedures. At least 50% of this time was spent in direct, [id number] contact. Plan discussed with: Patient [facility] Dec 22, 2024 19:51
[2024-12-22] MEDS: METOPROLOL TARTRATE 25 MG TAB PO SCH (21:46)
[2024-12-23] VITALS (8 sets, daily range): BP systolic 109–136; BP diastolic 36–102; PULSE 75–101; RESP 17–19; TEMP 97.5–98.2; O2SAT 96–99
[2024-12-23] MEDS: HYALURONIDASE 150 UNIT/1 ML SUBCUT ONE ×2 (08:23→10:44)
--- NOTE | 2024-12-23 13:03 | DVHPN2 ---
Progress Note - Dictate Date Seen: Dec 23, 2024 Medical Necessity Reason Pt with a Central, PICC or Fol: No Subjective Comfortable in bed and no complaints of palpitations or chest pain. Heart rate improved to 90s today. Patient had infiltration of her IV with amiodarone in the right hand therefore his switched to left hand. Infiltration site of the hand/arm appears improved. No erythema or warmth noted. vital signs Vital Sign Date Time Temp Pulse Resp B/P (MAP) Pulse Ox O2 Delivery O2 Flow Rate FiO2 12/23/24 11:58 97.9 88 17 136/85 (102) 96 97.9 12/22/24 20:00 Room Air* 0 21 Total Intake and Output 12/22/24 12/22/24 12/23/24 15:00 23:00 07:00 Intake Total 1000 ml 500 ml Balance 1000 ml 500 ml medications Current Medications Medications Dose Ordered Sig/Anil Route Start Time Stop Time Status Last Admin Dose Admin Acetaminophen/ Hydrocodone Bitart 1 tab Q4HP PRN PO 12/19/24 16:15 Ondansetron HCl 4 mg Q4HP PRN IV 12/19/24 16:15 12/20/24 13:51 4 MG Acetaminophen 650 mg Q6HP PRN PO 12/19/24 16:15 Nitroglycerin 0.4 mg Q5MINP PRN SL 12/19/24 16:15 Morphine Sulfate 2 mg Q30M PRN IV 12/19/24 16:15 12/19/24 23:01 2 MG Aspirin 81 mg DAILY PO 12/20/24 10:00 12/23/24 10:39 81 MG Atorvastatin Calcium 40 mg HS PO 12/19/24 22:00 12/22/24 21:45 40 MG Metoprolol Tartrate 2.5 mg Q6HPRN PRN IV 12/19/24 16:30 Docusate Sodium 100 mg BID PO 12/20/24 22:00 12/23/24 10:38 100 MG Enoxaparin Sodium 150 mg Q12HR SC 12/20/24 22:00 UNV Loratadine 10 mg DAILY PO 12/21/24 10:00 12/23/24 10:38 10 MG Metoprolol Tartrate 25 mg TID PO 12/22/24 22:00 12/23/24 05:09 25 MG Amiodarone HCl 400 mg Q12HR PO 12/23/24 22:00 objective Comfortable in bed without complaints. She wants to shower/bathing today. HEENT neck supple no JVD. Heart irregular rate and rhythm tachycardia. Abdomen obese positive bowel sounds. Extremities no edema. Lungs fair hormone with the wheezing. laboratory and microbiology Laboratory Tests 12/21/24 05:30 Test 12/21/24 05:30 Range/Units Serum Glucose 96 74-106 mg/dL Assessment/Plan We will cut down amiodarone drip to 0.5 mg given heart rate still in the low 90s. She is evaluated by electrophysiology nurse practitioner apparently considering cardioversion on Wednesday. Discussed with the patient. Otherwise continue rest of supportive care and treatment. Further clinical management per clinical course. Problems(with codes): (1) Pulmonary hypertension (2) Palpitations (3) Atrial fibrillation with RVR (4) Fall at home Dietary Evaluation Review Recommendations by RD: Dietary education by RD Comments: 1) Continue cardiac diet. Encourage optimal PO intake 2) Refer to outpatient RD for weight management 3) Follow-up with cardiology and pulmonology 4) Continue to monitor I&O, labs, and skin integrity Expected Outcomes/Goals: 1) appetite and labs to improve 2) gradual wt loss 3) f/u in 3-5 days Plan discussed with: Patient ETHAN PAREDES MD Dec 23, 2024 13:03
[2024-12-23] MEDS ORDERED: AMIODARONE HCL 200 MG TAB PO SCH (22:00)
--- NOTE | 2024-12-23 23:50 | DVHSR ---
APPROVED REPORT EXAM: Two-dimensional and M-mode echocardiogram with Doppler and color Doppler. Blood Pressure: 110/65 mmHg INDICATION Atrial Fibrillation RISK FACTORS Height: 5'9", Weight: 319 DIMENSIONS LVDd3.9 (3.8-5.7cm)LA (2D)4.6 (1.9-4.0cm)Aortic Root3.1 (2.0-3.7cm) LVDs2.8 (2.5-4.0cm)LA (MM) (1.9-4.0cm)Aortic Cusp Exc1.6 (1.5-2.0cm) EF (%) 55.0 (55-70%)Rt. Atrium4.0 (1.9-4.0cm)Asc. Aorta cm IVSd0.9 (0.7-1.1cm)RV (D)4.0 (1.8-2.4cm) PWd1.1 (0.7-1.1cm) Mitral Valve MitralMitral Stenosis E wave0.98m/sMV Mean GR.mmHg E/A ratio0.02D MVAcm2 Aortic Valve Aortic ValveAortic Stenosis V10.89m/Shira Mean GR.2mmHg V20.91m/Shira Peak GR.3mmHg LVOT Diameter1.9 (1.8-2.4cm)Doppler AVA2.77cm2 Tricuspid Valve TR Velocity2.41m/s [id number] Other Information Quality : Technically LimitedRhythm : Technically limited study due to body habitus. Conclusion MILD LVH AND MILD LV DIASTOLIC DYSFUNCTION LV EF IS 60 % AND IS NORMAL DYSKINESIS OF IVS MODERATELY DILATED RV RV IS ALSO HYPOKINETIC STUDY REVEAL RV FAILURE NORMAL VALVES NO EFFUSION
[2024-12-24] VITALS (8 sets, daily range): BP systolic 106–136; BP diastolic 69–83; PULSE 76–101; RESP 15–19; TEMP 97–98.6; O2SAT 95–98
[2024-12-24] MEDS: HYDROcodone-ACET 5/325MG TAB PO PRN (10:39)
--- NOTE | 2024-12-24 14:33 | DVHPN2 ---
Progress Note - Dictate Date Seen: Dec 24, 2024 Medical Necessity Reason Pt with a Central, PICC or Fol: No Subjective Patient's IV line is once again infiltrated and patient is not happy about it. Her heart rate is controlled into 80s now. She is scheduled for OLEG with cardioversion for tomorrow. vital signs Vital Sign Date Time Temp Pulse Resp B/P (MAP) Pulse Ox O2 Delivery O2 Flow Rate FiO2 12/24/24 14:04 101 124/78 12/24/24 08:30 97.0 15 97 97.0 12/24/24 08:00 Room Air* 0 21 Total Intake and Output 12/23/24 12/23/24 12/24/24 15:00 23:00 07:00 Intake Total 1700 ml 1300 ml Output Total 600 ml Balance 1100 ml 1300 ml medications Current Medications Medications Dose Ordered Sig/Anil Route Start Time Stop Time Status Last Admin Dose Admin Acetaminophen/ Hydrocodone Bitart 1 tab Q4HP PRN PO 12/19/24 16:15 12/24/24 10:39 1 TAB Ondansetron HCl 4 mg Q4HP PRN IV 12/19/24 16:15 12/20/24 13:51 4 MG Acetaminophen 650 mg Q6HP PRN PO 12/19/24 16:15 Nitroglycerin 0.4 mg Q5MINP PRN SL 12/19/24 16:15 Morphine Sulfate 2 mg Q30M PRN IV 12/19/24 16:15 12/19/24 23:01 2 MG Aspirin 81 mg DAILY PO 12/20/24 10:00 12/24/24 10:39 81 MG Atorvastatin Calcium 40 mg HS PO 12/19/24 22:00 12/23/24 21:48 40 MG Metoprolol Tartrate 2.5 mg Q6HPRN PRN IV 12/19/24 16:30 Docusate Sodium 100 mg BID PO 12/20/24 22:00 12/24/24 10:38 100 MG Enoxaparin Sodium 150 mg Q12HR SC 12/20/24 22:00 UNV Loratadine 10 mg DAILY PO 12/21/24 10:00 12/24/24 10:38 10 MG Metoprolol Tartrate 25 mg TID PO 12/22/24 22:00 12/24/24 14:04 25 MG Amiodarone HCl 200 mg Q12HR PO 12/24/24 22:00 objective Comfortable in bed without complaints. HEENT neck supple no JVD. Heart irregular rate and rhythm tachycardia. Abdomen obese positive bowel sounds. Extremities no edema. Lungs fair hormone with the wheezing. laboratory and microbiology Laboratory Tests 12/21/24 05:30 Test 12/21/24 05:30 Range/Units Serum Glucose 96 74-106 mg/dL Assessment/Plan We will completely DC the IV amiodarone now that heart rate is controlled. Start her on oral amiodarone. NPO after midnight. Proceed with a cardioversion as planned by Cardiology. Discussed with the patient and nurse regarding amiodarone IV infiltration and to use ice pack and preventive measures for any skin necrosis with hyaluronic acid. Problems(with codes): (1) Atrial fibrillation with RVR (2) Fall at home (3) Palpitations Dietary Evaluation Review Recommendations by RD: Dietary education by RD Comments: 1) Continue cardiac diet. Encourage optimal PO intake 2) Refer to outpatient RD for weight management 3) Follow-up with cardiology and pulmonology 4) Continue to monitor I&O, labs, and skin integrity Expected Outcomes/Goals: 1) appetite and labs to improve 2) gradual wt loss 3) f/u in 3-5 days Plan discussed with: ETHAN Negron MD Dec 24, 2024 14:33
[2024-12-24 15:05] LABS: Basophils # (auto) 0.1 10 ^3/uL (0-0.2); Basophils % (auto) 0.9 % (0.0-2.0); Eosinophils # (auto) 0.3 10 ^3/uL (0-0.8); Eosinophils % (auto) 4.5 % (0.0-7.0); Hematocrit 40.8 % (36.0-46.0); Hemoglobin 13.3 g/dL (12.2-16.2); Lymphocytes # (auto) 1.8 10 ^3/uL (0.4-5.4); Lymphocytes % (auto) 27.1 % (10.0-50.0); Mean Corpuscular Hemoglobin 27.2 pg (28.0-32.0); Mean Corpuscular Hgb Conc. 32.7 g/dL (32.0-36.0); Mean Corpuscular Volume 83.3 fL (80.0-100.0); Monocytes # (auto) 0.5 10 ^3/uL (0-1.3); Monocytes % (auto) 7.9 % (0.0-12.0); Neutrophils % (auto) 59.6 % (37.0-80.0); Platelet Count (auto) 206 10^3/uL (140-450); Red Cell Distribution Width 16.3 % (11.8-14.3); White Blood Cell 6.7 10^3/uL (4.4-10.8)
[2024-12-24 15:17] LABS: Chloride 106 mmol/L (98-107); Potassium 4.2 mmol/L (3.5-5.1); Sodium 141 mmol/L (136-145)
[2024-12-24 15:18] LABS: Anion Gap 8 (5-15); Carbon Dioxide 27 mmol/L (20-31)
[2024-12-24 15:19] LABS: Calcium 11.7 mg/dL (8.7-10.4)
[2024-12-24 15:21] LABS: INR 1.05 (0.9-1.15); Partial Thromboplastin Time 25.1 SEC (24.5-34.5); Prothrombin Time 11.1 sec (9.3-11.8)
[2024-12-24 15:23] LABS: BUN/Creatinine Ratio 16.3 (10.0-20.0); Blood Urea Nitrogen 14 mg/dL (9-23)
[2024-12-24 15:26] LABS: Glucose 113 mg/dL (74-106)
[2024-12-24] MEDS: HYALURONIDASE 150 UNIT/1 ML SUBCUT ONE (16:27)
[2024-12-24] MEDS ORDERED: diphenhdrAMINE HCL 25 MG CAP PO PRN (17:00)
[2024-12-24] MEDS: AMIODARONE HCL 200 MG TAB PO SCH (21:17)
[2024-12-25] VITALS (13 sets, daily range): BP systolic 91–117; BP diastolic 43–77; PULSE 66–98; RESP 16–18; TEMP 97.7–98.1; O2SAT 95–99
--- NOTE | 2024-12-25 07:21 | ECG ---
[facility] Test Date: 2024-12-24 Test Time: 03:26:13 Pat Name: TONYA SMILEY Department: Room: 0239T A Gender: F Sql Programmer: NADER : 1960 Requested By: ETHAN PAREDES Order Number: [id number] Reading MD: Measurements Intervals [place] Rate: 88 P: 0 PA: 0 QRS: 61 QRSD: 88 T: 36 QT: 360 QTc: 436 Interpretive Statements Atrial flutter Low voltage, precordial leads Borderline repolarization abnormality Please click the below link to view image of tracing.
[2024-12-25] MEDS ORDERED: LIDOCAINE VISCOUS 2% 15ML UD PO ONE (08:45)
[2024-12-25] MEDS ORDERED: fentaNYL CITRATE 100 MCG/2 ML VL IV ONE (08:45)
[2024-12-25] MEDS ORDERED: MIDAZOLAM HCL 2MG/2ML 2ml VIAL (1mg/ml) IV ONE (08:45)
[2024-12-25] MEDS ORDERED: MIDAZOLAM HCL 2MG/2ML 2ml VIAL (1mg/ml) ONE (09:07)
[2024-12-25] MEDS ORDERED: diphenhdrAMINE HCL 50 MG/1 ML VL ONE (09:07)
[2024-12-25] MEDS ORDERED: HEPARIN SODIUM (PORCINE) 5000 UNITS/ML 1ML VIAL ONE (09:19)
[2024-12-25] MEDS ORDERED: PATIENTS OWN MEDICATION (Eliquis 5 MG) PO ONE (09:30)
[2024-12-25] MEDS: APIXABAN 5 MG TAB PO ONE (09:45)
[2024-12-25] MEDS ORDERED: AMIO200T33 PO (13:23)
--- NOTE | 2024-12-25 13:25 | DVHDS2 ---
Discharge Summary Date of Admission Dec 19, 2024 at 16:06 Date of Discharge: Dec 25, 2024 Labs/Diagnostic Data: Laboratory Results Test 12/24/24 14:53 12/20/24 05:23 12/19/24 13:06 12/19/24 12:54 White Blood Count 6.7 10^3/uL (4.4-10.8) Red Blood Count 4.90 10^6/uL (4.0-5.20) Hemoglobin 13.3 g/dL (12.2-16.2) Hematocrit 40.8 % (36.0-46.0) Mean Corpuscular Volume 83.3 fL (80.0-100.0) Mean Corpuscular Hemoglobin 27.2 pg (28.0-32.0) Mean Corpuscular Hemoglobin Concent 32.7 g/dL (32.0-36.0) Red Cell Distribution Width 16.3 % (11.8-14.3) Platelet Count 206 10^3/uL (140-450) Mean Platelet Volume 8.8 fL (6.9-10.8) Neutrophils (%) (Auto) 59.6 % (37.0-80.0) Lymphocytes (%) (Auto) 27.1 % (10.0-50.0) Monocytes (%) (Auto) 7.9 % (0.0-12.0) Eosinophils (%) (Auto) 4.5 % (0.0-7.0) Basophils (%) (Auto) 0.9 % (0.0-2.0) Neutrophils # (Auto) 4.0 10 ^3/uL (1.6-8.6) Lymphocytes # (Auto) 1.8 10 ^3/uL (0.4-5.4) Monocytes # (Auto) 0.5 10 ^3/uL (0-1.3) Eosinophils # (Auto) 0.3 10 ^3/uL (0-0.8) Basophils # (Auto) 0.1 10 ^3/uL (0-0.2) Nucleated Red Blood Cells 0.0 % Prothrombin Time 11.1 sec (9.3-11.8) Prothrombin Time INR 1.05 (0.9-1.15) Activated Partial Thromboplast Time 25.1 SEC (24.5-34.5) Sodium Level 141 mmol/L (136-145) Potassium Level 4.2 mmol/L (3.5-5.1) Chloride Level 106 mmol/L (98-107) Carbon Dioxide Level 27 mmol/L (20-31) Anion Gap 8 (5-15) Blood Urea Nitrogen 14 mg/dL (9-23) Creatinine 0.86 mg/dL (0.550-1.02) Glomerular Filtration Rate Calc 76 mL/min (>90) BUN/Creatinine Ratio 16.3 (10.0-20.0) Serum Glucose 113 mg/dL (74-106) Calcium Level 11.7 mg/dL (8.7-10.4) Beta HCG, Quantitative 2.9 mIU/mL (1.5-4.2) Total Bilirubin 1.0 mg/dL (0.2-1.0) Aspartate Amino Transferase (AST) 19 U/L (<34) Alanine Aminotransferase (ALT) 23 U/L (7-40) Alkaline Phosphatase 109 U/L (46-116) Total Protein 6.7 g/dL (5.7-8.2) Albumin 4.0 g/dL (3.2-4.8) Troponin I High Sensitivity 3 ng/L (</=34) Urine Color Colorless (Yellow) Urine Clarity Clear (Clear) Urine pH 5.0 (5.0-9.0) Urine Specific [place] 1.003 (1.001-1.035) Urine Protein Negative (Negative) Urine Ketones Negative (Negative) Urine Blood Negative /uL (Negative) Urine Nitrite Negative (Negative) Urine Bilirubin Negative (Negative) Urine Urobilinogen Normal mg/dL (Negative) Urine Leukocyte Esterase Negative /uL (Negative) Urine RBC None seen /hpf (0 - 4) Urine Microscopic WBC 1 /HPF (0-5) Urine Squamous Epithelial Cells Few /hpf (<5) Urine Bacteria Mod /hpf (None Seen) Urine Glucose Normal mg/dL (Normal) Other Laboratory Tests 12/24/24 14:53 Final Diagnosis/Problems List afib rvr s/p cardioversion, htn, obesity Discharge Disposition: Home Discharge Instruct/Medications Diet: Consistent carbohydrate, Cardiac 2g Na,low cholest Activity: No Restrictions, As Tolerated Follow Up/Referral: charity fundraiser in 2 weeks. Medications: take as prescribed and continue home dose of metoprolol as your are taking and other home meds. Discharge Statement: "Patient was advised to return to the ER or call 911 if any headaches, dizziness, shortness of breath, chest pain, abdominal pain, bleeding, fevers, or worsening of medical condition. Patient was counseled about treatment plan, medications, possible side effects, patientverbalized understanding. All questions were answered to the best of my ability. This discharge took greater then 30 minutes in planning, reviewing documentation, counseling the patient, and discussing with other team members." ASSESSMENT ASSESSMENT Assessment afib rvr s/p cardioversion, htn, obesity ETHAN PAREDES MD Dec 25, 2024 13:25
--- NOTE | 2024-12-25 19:31 | DVHOP2 ---
Operative Report 12/25/24 Procedure Note Dictated By: Marshal Garza MD INDICATIONS: Atrial fibrillation with Rapid rate PROCEDURES: 1. Transesophageal echocardiogram 2. External cardioversion 2. Conscious sedation with fentanyl and Versed for an hour. PROCEDURE IN DETAILS: After obtaining informed consent with explanation of risk, benefits, and alternatives, the patient agreed upon the planned procedure, transesophageal echocardiogram. Under a standard fashion, local and systemic anesthetic, transesophageal echocardiogram probe was advanced in the esophagus. The following information was obtained: 1. Overall, left ventricular size is within normal range with ejection fraction in the range of 50%. 2. Right atrial size is moderately dilated, LA size is moderately dilated, without thrombus formation. MAIRA is without thrombus 3. Interatrial septum was evaluated by color doppler without PFO, 4. Mitral valve shows mild MAC, thicken MV with mild to moderate MR. No MS. 5. Aortic valve is mildly calcified, trileaflet, no AR, no 6. Tricuspid valve is structurally normal with mild tricuspid valve regurgitation. 7. Pulmonic valve is within normal range. 8. There is no significant pericardial effusion noted. 9. Aortic root showed, minimal atherosclerotic plaque without complex features. CONCLUSION: EF is 50%, mild to moderate MR, mild TR, Recommendation : Proceed with cardioversion After adequate sedation, 200 almaz of biphasic energy, synchronized, was delivered into chest, and patient was successfully converted to sinus rhythm. MARSHAL GARZA MD Dec 25, 2024 19:31
--- NOTE | 2024-12-26 07:49 | ECG ---
[facility] Test Date: 2024-12-21 Test Time: 12:32:14 Pat Name: TONYA SMILEY Department: Room: 0239T A Gender: F Field Placement Director: CHIDI : 1960 Requested By: ETHAN PAREDES Order Number: [id number] Reading MD: Measurements Intervals [place] Rate: 107 P: 0 IA: 254 QRS: 76 QRSD: 74 T: 93 QT: 364 QTc: 485 Interpretive Statements Sinus tachycardia with 1st degree AV block with premature supraventricular complexes Nonspecific ST abnormality Please click the below link to view image of tracing.
--- NOTE | 2024-12-26 07:49 | ECG ---
[facility] Test Date: 2024-12-21 Test Time: 12:30:19 Pat Name: TONYA SMILEY Department: Room: 0239T A Gender: F Director Of Managed Services: CHIDI : 1960 Requested By: ADE ORTEGA Order Number: [id number] Reading MD: Measurements Intervals [place] Rate: 104 P: 0 DE: 0 QRS: 38 QRSD: 78 T: 46 QT: 348 QTc: 457 Interpretive Statements Undetermined rhythm Cannot rule out Inferior infarct , age undetermined Please click the below link to view image of tracing.
== END 2024-12-25 18:17 | disposition home or self-care (01) | DRG 309 ==
LOC: ER 08:45 → OVERFLOW 16:06 → TELE-EAST 12-20 02:50
PROVIDERS: ADMIT Hospitalist; ATTEND Internal Medicine
PROC: 5A2204Z Restoration of Cardiac Rhythm, Single (ICD-10-PCS; principal; 2024-12-25)
PROC: B24BZZ4 Ultrasonography of Heart with Aorta, Transesophageal (ICD-10-PCS; 2024-12-25)
DX: I48.91 Unspecified atrial fibrillation (principal); Z68.42 Body mass index [BMI] 45.0-49.9, adult; I27.20 Pulmonary hypertension, unspecified; J44.9 Chronic obstructive pulmonary disease, unspecified; E78.5 Hyperlipidemia, unspecified; I10 Essential (primary) hypertension; G47.30 Sleep apnea, unspecified; E66.9 Obesity, unspecified; G89.4 Chronic pain syndrome; R73.03 Prediabetes; I48.92 Unspecified atrial flutter; Z96.652 Presence of left artificial knee joint; Z95.1 Presence of aortocoronary bypass graft; Z90.710 Acquired absence of both cervix and uterus; Z79.899 Other long term (current) drug therapy; Z79.82 Long term (current) use of aspirin
CPT/HCPCS: 36415; 71045; 80048; 80053; 81001; 84484; 84702; 85025; 85610; 85730; 86850; 86900; 86901; 92960; 93005; 93306; 93312; 99152; 99291; G0378; J2250; J2405; J3470